=== PATIENT | female | born 1960 | race Caucasian/White ===

== ENCOUNTER → 2018-01-25 12:17 | Outpatient (CLI) | payer MEDICAID, SELFPAY ==
--- NOTE | 2018-01-25 12:31 | XR_ITS ---
XR chest 2V HISTORY: Lung mass, lung cancer ITS.REASON: HX OF LUNG CANCER ORDERING PHYSICIAN: Stefano Quinones MD PATIENT AGE: 57 years COMPARISON: 09/19/2017 FINDINGS: Left perihilar and upper lobe mass is once again noted at 10 x 7 cm and appears slightly less bulky. There is however now consolidation in the left lower lobe laterally consistent with postobstructive pneumonia there is hyperinflation of the right lung with eventration of the hemidiaphragm. Normal heart size. No acute bony anomalies. IMPRESSION: Left perihilar and upper lobe mass once again noted is which may be slightly less bulky consistent with neoplasm. Peripheral consolidation in the left lower lobe laterally consistent with postobstructive pneumonia
[2018-01-25 12:37] LABS: Basophils % 0.5 % (0.1-2.0); Eosinophils # 0.1 K/mm3 (0.0-0.4); Eosinophils % 0.8 % (0.1-12.0); Hematocrit 42.5 % (37.0-47.0); Hemoglobin 14.1 g/dL (12.2-16.2); Lymphocytes # 1.2 K/mm3 (0.7-4.5); Lymphocytes % 17.3 K/mm3 (10-50); Mean Corpuscular HGB Conc 33.1 g/dL (31.8-35.4); Mean Corpuscular Hemoglobin 32.5 pg (27.0-31.2); Mean Corpuscular Volume 98.3 fl (81-99); Mean Platelet Volume 7.1 fl (7.4-10.4); Monocytes # 0.4 K/mm3 (0.1-1.0); Monocytes % 4.9 % (1.7-9.3); Neutrophils # 5.5 K/mm3 (1.8-7.8); Neutrophils % 76.4 % (37.0-80.0); Platelet Count 330 K/mm3 (142-424); Red Blood Count 4.33 M/mm3 (4.20-5.40); Red Cell Distribution Width 14.1 % (11.5-17.5); White Blood Count 7.2 K/mm3 (4.8-10.8)
[2018-01-25 17:01] LABS: Alanine Aminotransferase 84 U/L (12-78); Albumin Level 4.1 gm/dL (3.4-5.0); Albumin/Globulin Ratio 1.1 (1.1-1.8); Alkaline Phosphatase 262 U/L (46-116); Anion Gap 15.3 mEq/L (5-15); Aspartate Amino Transferase 182 U/L (15-37); Blood Urea Nitrogen 2 mg/dL (7-18); Calcium 9.4 mg/dL (8.5-10.1); Carbon Dioxide 30 mmol/L (21.0-32.0); Chloride 95 mmol/L (98-107); Creatinine,Serum 0.51 mg/dL (0.55-1.02); Estimated Glomerular Filt Rate 125 ml/min (>60); GFR (African American) 151 ML/MIN (>60); Globulin 3.6 gm/dl (1.3-3.2); Glucose 106 mg/dL (74-106); Potassium 4.3 mmoL/L (3.5-5.1); Sodium 136 mmol/L (136-145); Total Protein,Serum 7.7 gm/dL (6.4-8.2)
== END ==
PROVIDERS: PCP Internal Medicine Adolescent Medicine; Visit Provider Internal Medicine Adolescent Medicine
DX: C34.90 Malignant neoplasm of unspecified part of unspecified bronchus or lung (principal)
CPT/HCPCS: 36415; 71046; 80053; 85025

== ENCOUNTER → 2018-04-12 13:45 | Outpatient (CLI) | payer MEDICAID, SELFPAY ==
--- NOTE | 2018-04-12 13:52 | XR_ITS ---
XR chest 2V HISTORY: ITS.REASON: COUGH ORDERING PHYSICIAN: Marcela Patterson PATIENT AGE: 58 years COMPARISON: 01/25/2018: FINDINGS: Soft tissue mass once again noted in the left lower lobe measuring 10 x 5.3 x 7 cm and is overall not significant changed from 01/25/2018. Increased density once again noted in the peripheral aspect of the left lower lobe anterior to the mass and may be due to loculated effusion or post obstructive pneumonitis. Left upper lobe and right lung are clear. IMPRESSION: Overall no change in the left lower lobe mass with postobstructive pneumonia or loculated effusion
== END ==
PROVIDERS: PCP Nurse Practitioner Family; Visit Provider Nurse Practitioner Family
DX: R05 Cough (principal)
CPT/HCPCS: 71046

== ENCOUNTER → 2018-04-15 10:44 | Outpatient (POV) | payer MEDICAID, SELFPAY ==
[2018-04-15 10:59] VITALS: BP 121/71; PULSE 120; RESP 21; TEMP 36.8; O2SAT 94; BMI 14.3
--- NOTE | 2018-04-15 11:09 | PC.NURSE ---
patient alert, oriented at assessment. patient states was sent by medical staff for pain management for chronic bilateral leg pain that she has after chemo treatments.
--- NOTE | 2018-04-15 11:58 | HMH.PMCON ---
Assessment and Plan (1) Cancer associated pain Current visit: Yes Status: Chronic Category: Medical Code(s): G89.3 - Neoplasm related pain (acute) (chronic) (2) Back pain Current visit: Yes Status: Chronic Category: Medical Code(s): M54.9 - Dorsalgia, unspecified - Assessment and plan all Dx Assessment and Plan for all problems:: We will continue her on her oxycodone 5 twice daily. Patient is not do this at this time. LAURA reviewed and appropriate. I spoke with Dr. Nino and he is in agreement with this. Patient and I did discuss potentially a intrathecal pain pump if her pain symptoms get worse. This note was dictated using voice recognition software and may contain errors or omissions HPI - Data of Consult Consult date: 04/15/18 Requesting Physician: Aliya Sharma APRN Primary Care Provider: Marcela Patterson APRN - Consult Narrative Reason for consult: Cancer pain History of present illness: Ms. Willson is a 58 year old female who presents consultation in regards to her pain secondary to lung cancer. Patient was diagnosed with lung cancer in 2017 and pursued chemo treatment however she had side effects of the chemo treatment including terrible back and leg pain. Patient is being prescribed oxycodone 5 mg by her primary care physician. She states that she only takes 1 or 2 a week. Patient rates her pain today a 4 out of 10. CC: Aliya Sharma APRN [facility] History I have reviewed the patient's past medical history: Yes Medical History: Reports:: Cancer Denies:: Home Oxygen Other Medical History: Reports: Anemia Other Surgeries: Yes: , Tubal Ligation - *Social History Smoking Status: Current every day smoker Tobacco Type: cigarettes Alcohol Intake: current Alcohol Intake Frequency:: 3 or more drinks per day Occupational Status: disabled - Psychiatric History Expresses thoughts of harming self/others: None Suicide Plan Description: No Plan *Family Hx:: Heart Attack Review of Systems - Review of Systems ROS General: no recent weight change, no fever, no sleep disturbances Respiratory: no cough, no shortness of air, no recurring pulmonary infections Cardiovascular/Peripheral Vascular: No chest pain, No palpitations, no edema, no shortness of breath. Gastrointestinal: no incontinence, normal bowel movements reported Genitourinary: no incontinence Musculoskeletal: Back pain, chest wall pain, leg pain Psychiatric: normal mood/ affect Neurological: [denies weakness in extremities], [denies balance issues] Meds Allergies Allergy/AdvReac Type Severity Reaction Status Date / Time No Known Allergies Allergy Verified 09/19/17 09:28 Objective Vital signs: Temp Pulse Resp BP Pulse Ox 98.2 F 120 H 21 121/71 94 L 04/15/18 10:59 04/15/18 10:59 04/15/18 10:59 04/15/18 10:59 04/15/18 10:59 Narrative: Physical Exam General: Alert and oriented x3, no acute distress, pleasant and cooperative, [on room air] Lungs: Resps E/U, Symmetrical chest expansion, Eyes: PERRL Musculoskeletal: Flexion and extension of lumbar spine somewhat guarded secondary to pain, deep tendon reflexes normal, strength in upper and lower extremities [5/5], antalgic gait noted Neurological: speech clear, rolling machine operator equal, no gross sensory deficits Opioid Risk Tool - Opioid Risk Tool-Female Family hx alcohol abuse: Y Family hx illegal drugs: N Family hx rx drug abuse: N Personal hx alcohol abuse: Y Personal hx illegal drugs: N Personal hx rx drug abuse: N Age: 45+ Hx of sexual abuse: N Mental health issues-ADD,OCD,Bipolar, etc: N Hx of depression: N Female Risk Score: 2
== END ==
PROVIDERS: PCP Nurse Practitioner Family; Visit Provider Clinical Nurse Specialist Family Health
DX: G89.3 Neoplasm related pain (acute) (chronic) (principal); C34.90 Malignant neoplasm of unspecified part of unspecified bronchus or lung; M54.9 Dorsalgia, unspecified
CPT/HCPCS: 99202

== ENCOUNTER → 2018-06-03 13:57 | Outpatient (POV) | payer MEDICAID, SELFPAY ==
[2018-06-03 14:39] VITALS: BP 113/87; PULSE 127; RESP 18; O2SAT 99; BMI 13.6
--- NOTE | 2018-06-03 14:50 | P.CONS_ITS ---
[facility] Pain Management SOAP Note Subjective:: Patient is a very pleasant 58-year-old female who presents today for follow-up. Patient witnessed with lung cancer in 2017 and pursued commitment however she had side effects of the chemo including terrible back and leg pain. She then was prescribed oxycodone 5 mg twice daily from her primary care physician she states she only takes 1 or 2 of them a week. Rates her pain today a 2 out of 10. Patient is doing well. ROS General: no recent weight change, no fever, no sleep disturbances Respiratory: no cough, no shortness of air, no recurring pulmonary infections Cardiovascular/Peripheral Vascular: No chest pain, No palpitations, no edema, no shortness of breath. Gastrointestinal: no incontinence, normal bowel movements reported Genitourinary: no incontinence Musculoskeletal: Back pain, leg, chest wall pain Psychiatric: normal mood/ affect, Neurological: [denies weakness in extremities], [denies balance issues] Objective:: Physical Exam General: Alert and oriented x3, no acute distress, pleasant and cooperative, [on room air] Lungs: Resps E/U, Symmetrical chest expansion, Eyes: PERRL Musculoskeletal: Flexion and extension of lumbar spine somewhat guarded secondary to pain, deep tendon reflexes normal, strength in upper and lower extremities [5/5], [abnormal gait noted] Neurological: speech clear, bark tanner equal, no gross sensory deficits Assessment:: Cancer associated pain, back pain Plan:: We will give the patient for oxycodone 5 mg 1 twice daily as needed. We will follow-up with her in 3 months and reassess her symptoms at that time. She is been instructed to call the office if she has any issues prior to her next appointment. Dr. Nino has reviewed this note and agrees with this plan of care. This note was dictated using voice recognition software and may contain errors or omissions
[2018-06-03 16:30] LABS: Amphetamine/Metha Screen,Urine Negative ng/mL (<1000); Barbiturates Screen,Urine Negative ng/mL (<200); Benzodiazepines Screen,Urine Negative ng/mL (<200); Cannabinoid Screen,Urine Negative ng/mL (<50); Cocaine Screen,Urine Negative ng/mL (<300); Methadone Screen,Urine Negative ng/mL (<300); Opiate Screen,Urine Negative ng/mL (<300); Phencyclidine Screen,Urine Negative ng/mL (<25)
[2018-06-08 11:57] LABS: Opiates Negative (Cutoff=100)
== END ==
PROVIDERS: PCP Nurse Practitioner Family; Visit Provider Clinical Nurse Specialist Family Health
DX: G89.3 Neoplasm related pain (acute) (chronic) (principal); M54.9 Dorsalgia, unspecified
CPT/HCPCS: 80305; 80361; 80365; 99213; G0480

== ENCOUNTER → 2018-06-13 12:30 | Outpatient (CLI) | payer MEDICAID, SELFPAY ==
--- NOTE | 2018-06-13 12:50 | CT_ITS ---
CT chest w con HISTORY: History of lung cancer, pneumonia, chest mass ITS.REASON: BENIGN NEOPLASM OF CONNECTIVE AND OTHER SOFT TISSUE OF THORA ORDERING PHYSICIAN: Marcela Patterson PATIENT AGE: 58 years COMPARISON: 09/19/2017 TECHNIQUE: Axial images obtained following the administration of 75 mL of Isovue 370 . Sagittal, and coronal reformatted images are also generated and reviewed. All CT scans at the facility use one or more dose reduction, viz: automated exposure control, ma/kV adjustment per patient size (including targeted exams where dose is matched to indication, i.e. head), or iterative reconstruction technique. FINDINGS: There is a large soft tissue mass in the superior segment of the left lower lobe with associated lung consolidation surrounding and peripheral to the mass. The lesion measures 9 cm transverse, 6 cm cephalad to caudad, 7 cm AP consistent with lung cancer. There is postobstructive pneumonitis in the left lower lobe. There are peripheral satellite nodules in the left lower lobe as well. Scattered nodular opacities are present in the left upper lobe, right upper lobe, and right lower lobe. There are severe centrilobular emphysematous changes. There is opacification in the right upper lobe with a tree-in-bud pattern consistent with pneumonia. There is some No effusions are evident. The large peripheral nodule is 1.9 cm within the right upper lobe inferiorly with some mild postobstructive pneumonitis peripheral to this nodule. Other smaller nodules are present in both lungs as described above. No mediastinal or hilar adenopathy. Normal heart size. Upper abdominal images show diffuse fatty liver infiltration. No bony destructive process demonstrated. IMPRESSION: 1. Left lower lobe mass as described above consistent with lung cancer with postobstructive pneumonitis. There are satellite nodules in the left lower lobe and peripheral nodules in both left and right lung consistent with metastatic disease. 2. Right upper lobe pneumonia 3. Centrilobular emphysema
[2018-06-13 13:03] LABS: Anion Gap 10.7 mEq/L (5-15); Blood Urea Nitrogen 2 mg/dL (7-18); Calcium 9.1 mg/dL (8.5-10.1); Carbon Dioxide 32 mmol/L (21.0-32.0); Chloride 93 mmol/L (98-107); Estimated Glomerular Filt Rate 128 ml/min (>60); GFR (African American) 154 ML/MIN (>60); Glucose 115 mg/dL (74-106); Potassium 3.7 mmoL/L (3.5-5.1); Sodium 132 mmol/L (136-145)
== END ==
PROVIDERS: Visit Provider Nurse Practitioner Family
DX: D21.3 Benign neoplasm of connective and other soft tissue of thorax (principal)
CPT/HCPCS: 36415; 71260; 80048

== ENCOUNTER → 2018-09-02 11:12 | Outpatient (POV) | payer MEDICAID, SELFPAY ==
[2018-09-02 11:23] VITALS: BP 105/66; PULSE 114; RESP 18; O2SAT 98; BMI 18.3
--- NOTE | 2018-09-02 11:31 | P.CONS_ITS ---
[facility] Pain Management SOAP Note Subjective:: Patient is a pleasant 58-year-old white female who presents today for follow-up. Patient is currently battling lung cancer. Patient has not been continuing any kind of chemotherapy. Patient's been on oxycodone 5 mg twice daily for pain. She only takes 1 or 2 of them a week. She rates her pain today a 2 out of 10. Patient is overall doing well. Fabian reviewed and appropriate. ROS General: no recent weight change, no fever, no sleep disturbances Respiratory: no cough, no shortness of air, no recurring pulmonary infections Cardiovascular/Peripheral Vascular: No chest pain, No palpitations, no edema, no shortness of breath. Gastrointestinal: no incontinence, normal bowel movements reported Genitourinary: no incontinence Musculoskeletal: Back pain, leg pain, chest wall pain Psychiatric: normal mood/ affect Neurological: [denies weakness in extremities], [denies balance issues] Objective:: Physical Exam General: Alert and oriented x3, no acute distress, pleasant and cooperative, [on room air] Lungs: Resps E/U, Symmetrical chest expansion, Eyes: PERRL Musculoskeletal: Flexion and extension of lumbar spine somewhat guarded secondary to pain, deep tendon reflexes normal, strength in upper and lower extremities [5/5], antalgic gait noted Neurological: speech clear, transport nurse equal, no gross sensory deficits Assessment:: Cancer associated pain, back pain Plan:: We will give the patient oxycodone 5 mg 1 p.o. twice daily as needed we will follow-up with her in 3 months reassess her symptoms at that time she is been instructed to call the office if she has any issues prior to her next appointment. Dr. Nino has reviewed this note and agrees with this plan of care. This note was dictated using voice recognition software and may contain errors or omissions
== END ==
PROVIDERS: PCP Nurse Practitioner Family; Visit Provider Clinical Nurse Specialist Family Health
DX: G89.3 Neoplasm related pain (acute) (chronic) (principal); M54.5 Low back pain
CPT/HCPCS: 99212

== ENCOUNTER 2018-11-26 05:12 | Inpatient (IN) ==
[2018-11-26 05:35] LABS: ABG Base Excess 3.3 mmol/L (-2.4-2.3); ABG HCO3 26.8 mmhg (22.0-26.0); ABG Oxygen Saturation 88 % (90-100); ABG PH 7.48 mmol/L (7.35-7.45); ABG PO2 53.2 mmhg (80-100); ABG TCO2 27.9 mmhg (23-27)
[2018-11-26 05:37] LABS: Oxygen ROOM AIR %
[2018-11-26 05:58] LABS: Basophils # 0.1 K/mm3 (0-0.2); Basophils % 0.3 % (0.1-2.0); Eosinophils # 0.1 K/mm3 (0.0-0.4); Eosinophils % 0.3 % (0.1-12.0); Hemoglobin 12.6 g/dL (12.2-16.2); Lymphocytes # 2.6 K/mm3 (0.7-4.5); Lymphocytes % 7.1 % (10-50); Mean Corpuscular HGB Conc 30.8 g/dL (31.8-35.4); Mean Corpuscular Volume 93.3 fl (81-99); Mean Platelet Volume 6.9 fl (7.4-10.4); Monocytes # 1.4 K/mm3 (0.1-1.0); Monocytes % 3.7 % (1.7-9.3); Neutrophils # 32.8 K/mm3 (1.8-7.8); Neutrophils % 88.6 % (37.0-80.0); Platelet Count 887 K/mm3 (142-424); Red Cell Distribution Width 15.5 % (11.5-17.5)
[2018-11-26 06:21] LABS: Albumin Level 2.2 gm/dL (3.4-5.0); Albumin/Globulin Ratio 0.4 (1.1-1.8); Anion Gap 14.3 mEq/L (5-15); Bilirubin,Total 0.7 mg/dL (0.2-1.0); Globulin 5.7 gm/dl (1.3-3.2); Total Protein,Serum 7.9 gm/dL (6.4-8.2)
[2018-11-26 06:38] LABS: Lymphocytes % 8 % (10-50); Monocytes % 5 % (2-9); Neutrophils % 87 % (42-76); Total Cells Counted 100
--- NOTE | 2018-11-26 06:43 | Emergency Department Note ---
ED Disposition Clinical Impression: NSTEMI (non-ST elevated myocardial infarction), Low body mass index (BMI), Tobacco use Community acquired pneumonia Qualifiers: Laterality: right Lung location: unspecified part of lung Qualified Code(s): J1 8.9 - Pneumonia, unspecified organism Sepsis Qualifiers: Sepsis type: sepsis due to unspecified organism Qualified Code(s): A41.9 - Sepsis, unspecified organism Lung cancer Qualifiers: Laterality: right Lung location: unspecified part of lung Qualified Code(s): C34.91 - Malignant neoplasm of unspecified part of right bronchus or lung Disposition: Admitted As Inpatient Condition on Discharge: Critical Referrals: Marcela Patterson APRN [Primary Care Provider] - - Critical Care Critical Care Time: No Attestation: On 11/26/18, the high probability of a clinically significant, sudden or life threatening deterioration of the following system(s) required my full and direct attention, intervention and personal management. The time I documented below is in addition to time spent performing reported procedures but includes the following listed in this critical care notation. Medical Decision Making - Medical Records Medical records reviewed: Yes: I reviewed the patient's medical records. - Fabian Inquiry Pt receiving controlled substance: No Vital Signs: 11/26/18 05:23 11/26/18 05:51 11/26/18 06:46 Temperature 97.9 F 99.4 F Temperature Source Oral Oral Pulse Rate 140 H Pulse Rate [Right Radial] 150 H Respiratory Rate 27 H Blood Pressure [Right Arm] 108/82 L 118/70 Blood Pressure Mean [Right Arm] 90 86 02 Sat by Pulse Oximetry 85 L Oxygen Delivery Method Oxygen Flow Rate (LPM) 11/26/18 06:47 Temperature Temperature Source Pulse Rate Pulse Rate [Right Radial] 152 H Respiratory Rate 26 H Blood Pressure [Right Arm] Blood Pressure Mean [Right Arm] 02 Sat by Pulse Oximetry 91 L Oxygen Delivery Method Nasal Cannula Oxygen Flow Rate (LPM) 2 - Lab Data Lab results reviewed: Yes: I reviewed the patient's lab results. Lab Results 11/26/18 05:30: O2 % Room air, ABG pH 7.48 H, ABG pCO2 37.0, ABG pO2 53.2 L, ABG HCO3 26.8 H, ABG Total CO2 27.9 H, ABG O2 Saturation 88 L, ABG Base Excess 3.3 H 11/26/18 05:40: WBC 37.0 H*, RBC 4.40, Hgb 12.6, Hct 41.0, MCV 93.3, MCH 28.7, MCHC 30.8 L, RDW 15.5, Plt Count 887 H, MPV 6.9 L, Neut % (Auto) 88.6 H, Lymph % (Auto) 7.1 L, [place] % (Auto) 3.7, Eos % (Auto) 0.3, Baso % (Auto) 0.3, Neut # (Auto) 32.8 H, Lymph # (Auto) 2.6, [place] # (Auto) 1.4 H, Eos # (Auto) 0.1, Baso # (Auto) 0.1, Total Counted 100, Neutrophils % (Manual) 87 H, Lymphocytes % (Manual) 8 L, Monocytes % (Manual) 5, Platelet Estimate Marked increase, RBC Morphology Normal 11/26/18 05:40: Sodium 133 L, Potassium 3.3 L, Chloride 93 L, Carbon Dioxide 29, Anion Gap 14.3, BUN 6 L, Creatinine 0.54 L, Estimated Creat Clear 58, Estimated GFR 117, Est GFR ( Amer) 141, Glucose 121 H, Calcium 9.0, Total Bilirubin 0.7, AST 51 H, ALT 29, Alkaline Phosphatase 316 H, Troponin I 1.86 H, Total Protein 7.9, Albumin 2.2 L, Globulin 5.7 H, Albumin/Globulin Ratio 0.4 L 11/26/18 05:40: Lactate 2.3 H Result diagrams: 11/26/18 05:40 11/26/18 05:40 Orders (Tests/Meds): ED MEDICATIONS Generic Name Dose Route Start Last Admin Trade Name Lopezq PRN Reason Stop Dose Admin Sodium Chloride 1,000 mls @ 999 mls/hr 11/26/18 06:00 11/26/18 05:52 Sod Chlor 0.9% 1000ml Bag IV 11/26/18 07:00 999 mls/hr .Q1H1M MARTIN Administration Ceftriaxone Sodium 1 gm/ 50 mls @ 100 mls/hr 11/26/18 07:00 Sodium Chloride IV 12/10/18 06:59 Q24H MARTIN Protocol Sodium Chloride 3 ml 11/26/18 05:38 Sodium Chloride 3% 15ml Neb IH 12/26/18 05:37 ONCE PRN INDUCE SPUTUM COLLECTION Discontinued Medications Generic Name Dose Route Start Last Admin Trade Name Victor M PRN Reason Stop Dose Admin Acetaminophen 650 mg 11/26/18 05:51 11/26/18 05:52 Acetaminophen 325mg Tab PO 11/26/18 05:52 650 mg ONCE ONE Administration Levalbuterol HCl 0.63 mg 11/26/18 05:37 11/26/18 05:48 Xopenex 0.63mg/3ml [facility] 11/26/18 05:38 0.63 mg ONCE ONE Administration Methylprednisolone Sodium Succinate 125 mg 11/26/18 05:36 11/26/18 05:51 Solu-Medrol 125mg/2ml Vial IV 11/26/18 05:37 125 mg ONCE ONE Administration ORDERS Category Date Time Status XR chest portable Stat Exams 11/26/18 05:35 Taken Blood Culture Stat Micro 11/26/18 05:38 Received Sputum Culture & Gram Stain Stat Micro 11/26/18 05:40 Received - Radiology Data #1 Image(s): Chest Image Reviewed: Yes I reviewed the patient's radiology image Preliminary Findings: Abnormal (extensive rt sided changes ) - ECG Data Tracing #1 Arrhythmias present: sinus tach Ischemic changes: other (changes lat leads ) ECG compared to prior tracings: this ECG reveals significant changes Tracing #2 Arrhythmias present: sinus tach Ischemic changes: other (lat changes somewhat better ) ECG compared to prior tracings: this ECG reveals significant changes - Physician Consults Physician Consulted: doc Reason -: Admission Additional Consult: rell Reason -: Pt condition Resp/SOB HPI - General Chief Complaint: Shortness of Breath/Dyspnea Stated Complaint: SOB Time Seen by Provider: 11/26/18 05:50 Mode of Arrival: Wheelchair Source of Information: Patient Limitations: No Limitations Description of Symptoms (Recalled from ER Triage Doc. by RN): pt c/o shortness of breath. pt hx of stage 4 lung ca and copd. - History of Present Illness pt with prod cough and inc sob with hx of lung cancer - no chest pain - no hx of heart disease - MD Complaint: shortness of breath, cough Onset (ago): hour(s) Severity: moderate Known history of: COPD Associated symptoms: sputum production Treatment prior to arrival: none - Related Data Home oxygen amount: 2 liters Home Medications Medication Instructions Recorded Confirmed Albuterol Sulfate [Albuterol HFA 1 - 2 puffs IH NEEDED PRN 11/26/18 11/26/18 Inhaler] predniSONE [Prednisone 5mg 5 mg PO DIRECTED 11/26/18 11/26/18 Tab] Allergies Allergy/AdvReac Type Severity Reaction Status Date / Time No Known Allergies Allergy Verified 09/19/17 09:28 [facility] History - Hepatitis A Screen Drug use history?: No High risk sexual behaviors?: No History of sexually transmitted infection?: No Currently employed?: No Childcare worker?: No Do you have indoor plumbing?: No Do you have electricity?: Yes Attestation statement:: This patient has been screened for Hepatitis A risk factors. I have reviewed the patient's past medical history: Yes ( ) Medical History: Reports:: Cancer (JONAH 4 LUNG) Denies:: Diabetes Mellitus Type 1, Diabetes Mellitus Type 2, Home Oxygen Other Medical History: Reports: Anemia Other Surgeries: Yes: , Tubal Ligation - Social History Smoking Status: Current every day smoker Tobacco Type: cigarettes # Packs/Day (cigarettes): 1 Alcohol Intake: never Alcohol Intake Frequency:: 3 or more drinks per day Occupational Status: disabled Family Hx:: Heart Attack ROS Obtained: Yes All systems reviewed & no additional complaints - Constitutional Constitutional: Reports as per HPI, Denies fever(s), Reports weakness - Eyes Eyes: Denies change in vision - ENT Ears, Nose, Mouth, and Throat: Denies sore throat - Cardiovascular Cardiovascular: Denies chest pain, Reports dyspnea - Respiratory Respiratory: Yes as per HPI, Yes cough, No coughing up blood, Yes pain with cough - Gastrointestinal Gastrointestingal: Denies: abdominal pain - Genitourinary Female Genitourinary: Denies hematuria - Musculoskeletal Musculoskeletal: Denies joint pain, Denies joint swelling - Integumentary/Breasts Skin/Breast: Denies rash - Neurologic Neurologic: Denies seizure-like activity Physical Exam - General General appearance: anxious, cachectic - Head Head exam: normocephalic - Eye Eye exam: Present: PERRL, EOMI. Absent: scleral icterus - ENT ENT exam: Present: mucous membranes dry - Neck Neck exam: Present: trachea midline - Respiratory Respiratory exam: Present: accessory muscle use, other (dec bs bilat ). Absent: respiratory distress - Cardiovascular Cardiovascular exam: Present: tachycardia, systolic murmur, +S3 - Abdominal Exam Abdominal exam: Present: soft - Extremities Exam Extremities exam: Absent: calf tenderness - Neurological Exam Neurological exam: Present: alert, CN II-XII intact - Psychiatric Psychiatric exam: Present: anxious - Skin Skin exam: Absent: rash
[2018-11-26 06:45] LABS: RBC Morphology Normal
[2018-11-26 07:13] LABS: Appearance,Urine CLEAR (Clear); Bilirubin,Urine Negative (Negative); Blood, Urine Negative (Negative); Color,Urine YELLOW (Yellow); Glucose,Urine (UA) Negative (Negative); Ketones,Urine Negative (Negative); Leukocyte Esterase,Urine Negative (Negative); PH,Urine 6.5 (5.0-8.5); Protein,Urine Negative (Negative); Urobilinogen,Urine 0.2 EU/dl (0.2)
[2018-11-26 07:14] LABS: Microscopic, Urine URINE MICROSCOPIC (MICROSCOPIC)
[2018-11-26 07:30] LABS: Bacteria,Urine Trace /lpf; RBC,Urine Occasional #/hpf (0-3)
--- NOTE | 2018-11-26 07:38 | Pharmacy Consult Notes ---
[facility] VTE Monitoring - Patient Demographics Admission date: 11/26/18 Report Date: 11/26/18 Time: 07:38 Allergies/Adverse Reactions: Patient Allergies No Known Allergies Allergy (Verified 09/19/17 09:28) Height: 1.65 m Weight: 31.751 kg Patient Problems: Current Active Problems (Updated 11/26/18 @ 06:59 by [place] Rodney MD) Lung cancer (Acute) Community acquired pneumonia (Acute) Sepsis (Acute) NSTEMI (non-ST elevated myocardial infarction) (Acute) Low body mass index (BMI) (Acute) Tobacco use (Acute) - VTE Risk Labs: VTE Related Lab Results Hgb 12.6 g/dL (12.2-16.2) 11/26/18 05:40 Hct 41.0 % (37.0-47.0) 11/26/18 05:40 Plt Count 887 K/mm3 (142-424) H 11/26/18 05:40 BUN 6 mg/dL (7-18) L 11/26/18 05:40 Creatinine 0.54 mg/dL (0.55-1.02) L 11/26/18 05:40 Estimated Creat Clear 58 mL/min (50-200) 11/26/18 05:40 - Prophylaxis VTE Prophylaxis Ordered?: Yes Types of VTE Prophylaxis: TEDS Knee High Location of Applied Device: Bilateral Lower Extremeties - VTE Diagnosis Confirmed Treatment or plan recommended: Continue Current Treatment
--- NOTE | 2018-11-26 09:03 | History & Physical Report ---
*Admission Date: 11/26/18 <Rosalie Ellis 11/26/18 09:17> *Chief complaint: Shortness of breath <Rosalie Ellis 11/26/18 09:17> *History of present illness: Ms. Willson is a 58-year-old patient of Marcela Patterson APRN who presented to the [facility] emergency room with shortness of breath. She states she awakened around 3 AM this morning and was unable to breathe. This progressively worsened. She denies having chest pain at this time. She was staying with her son last night and did not bring her oxygen or her neb machine. With evaluation in the emergency room patient was found to have an elevated white blood cell count of 37,000, elevated troponin, elevated lactic acid, EKG changes, PO2 in the 50s and chest x-ray which revealed possible pneumonia. She was thus admitted for further evaluation and treatment with cardiology consult. She did receive a liter of IV fluids in the emergency room as well as a Xopenex neb treatment and steroids At the time of this exam patient states she is somewhat better. She continues to deny chest pain. Patient has a history of lung cancer and stopped treatments about a year ago. She states the treatments were killing her. She has been unable to walk and uses a wheelchair for ambulation. <RhondaRosalie 11/26/18 09:24> [facility] History Medical History: Reports:: Cancer (JONAH 4 LUNG), Chronic Obstructive Pulmonary Disease (COPD), Home Oxygen, Lung Disease Denies:: Atherosclerotic Heart Disease, Coronary Artery Disease, Diabetes Mellitus Type 1, Diabetes Mellitus Type 2, Gastroesophageal Reflux Disease(GERD), Myocardial Infarction, Palpitations <Rosalie Ellis 11/26/18 09:17> *Have you ever received a pneumonia vaccine?: No <Rosalie Ellis 11/26/18 09:17> *Have you received a flu vaccine this season?: No <Rosalie Ellis 11/26/18 09:17> Other Medical History: Reports: Anemia, Chemotherapy (She stopped treatment about a year ago). Denies: Hypothyroidism <Rosalie Ellis 11/26/18 09:17> Other Surgeries: Yes: , Tubal Ligation <Rosalie Ellis 11/26/18 09:17> Amputation: No <Rosalie Ellis 11/26/18 09:17> Fractures: No <Rosalie Ellis 11/26/18 09:17> - *Social History Educational Level: Attended High School <Rosalie Ellis 11/26/18 09:17> Smoking Status: Current every day smoker <Rosalie Ellis 11/26/18 09:17> Tobacco Type: cigarettes <Rosalie Ellis 11/26/18 09:17> # Packs/Day (cigarettes): 1 <Rosalie Ellis 11/26/18 09:17> Alcohol Intake: current <Rosalie Ellis 11/26/18 09:17> Alcohol Intake Frequency:: 3 or more drinks per day <Rosalie Ellis 11/26/18 09:17> *Occupational Status:: disabled <Rosalie Ellis 11/26/18 09:17> Housing: house <Rosalie Ellis 11/26/18 09:17> *Travel in the last 8 weeks: None <Rosalie Ellis 11/26/18 09:17> - Psychiatric History Expresses thoughts of harming self/others: None <Rosalie Ellis 11/26/18 09:17> Suicide Plan Description: No Plan <Rosalie Ellis 11/26/18 09:17> Family Hx:: Heart Attack <Rosalie Ellis 11/26/18 09:17> Review of Systems - Constitutional Reports chills, Reports weakness, Denies headache(s) <Rosalie Ellis 11/26/18 09:17> - ENT Reports post nasal drip, Reports dizziness, Denies ear pain, Denies headache(s), Denies nasal discharge, Denies sore throat <Rosalie Ellis 11/26/18 09:17> - *Cardiovascular Reports shortness of breath, Reports leg swelling, Denies chest pain, Denies irregular heart rhythm <RhondaRosalie 11/26/18 09:17> - *Respiratory Reports change in phlegm color, Reports cough, Reports shortness of breath, Reports coughing up blood <Rosalie Ellis 11/26/18 09:17> - *Gastrointestinal Reports change in bowel habits (Constipation with pain medicines), Reports constipation, Denies abdominal pain, Denies vomiting blood, Denies nausea, Denies vomiting <Rosalie Ellis Dorina 11/26/18 09:17> - *Genitourinary Denies difficulty urinating <Rosalie Ellis Dorina 11/26/18 09:17> - *Musculoskeletal Reports abnormal walking, Reports decreased muscle mass <Rosalie Ellis Dorina 11/26/18 09:17> - *Neurologic Reports weakness, Denies seizure-like activity <Rosalie Ellis Dorina 11/26/18 09:17> Comments: Ambulates in a wheelchair <Rosalie Ellis Dorina 11/26/18 09:17> Meds Home Medications Medication Instructions Recorded Confirmed Type Albuterol Sulfate [Albuterol HFA 1 - 2 puffs IH NEEDED PRN 11/26/18 11/26/18 History Inhaler] Diclofenac Sodium [Diclofenac 75mg 75 mg PO BID 11/26/18 11/26/18 History Tab] predniSONE [Prednisone 5mg 5 mg PO DIRECTED 11/26/18 11/26/18 History Tab] <Bonny Carty Dorina 11/26/18 11:12> Allergies Allergy/AdvReac Type Severity Reaction Status Date / Time No Known Allergies Allergy Verified 09/19/17 09:28 <Bonny Carty Dorina 11/26/18 11:12> Exam Vital signs and Labs for Last 24 Hours: Temp Pulse Resp BP Pulse Ox 97.7 F 129 H 24 135/89 2 L 11/26/18 08:27 11/26/18 10:00 11/26/18 08:27 11/26/18 08:27 11/26/18 10:00 Laboratory Results - last 24 hr 11/26/18 05:30: O2 % Room air, ABG pH 7.48 H, ABG pCO2 37.0, ABG pO2 53.2 L, ABG HCO3 26.8 H, ABG Total CO2 27.9 H, ABG O2 Saturation 88 L, ABG Base Excess 3.3 H 11/26/18 05:40: WBC 37.0 H*, RBC 4.40, Hgb 12.6, Hct 41.0, MCV 93.3, MCH 28.7, MCHC 30.8 L, RDW 15.5, Plt Count 887 H, MPV 6.9 L, Neut % (Auto) 88.6 H, Lymph % (Auto) 7.1 L, [place] % (Auto) 3.7, Eos % (Auto) 0.3, Baso % (Auto) 0.3, Neut # (Auto) 32.8 H, Lymph # (Auto) 2.6, [place] # (Auto) 1.4 H, Eos # (Auto) 0.1, Baso # (Auto) 0.1, Total Counted 100, Neutrophils % (Manual) 87 H, Lymphocytes % (Manual) 8 L, Monocytes % (Manual) 5, Platelet Estimate Marked increase, RBC Morphology Normal 11/26/18 05:40: Sodium 133 L, Potassium 3.3 L, Chloride 93 L, Carbon Dioxide 29, Anion Gap 14.3, BUN 6 L, Creatinine 0.54 L, Estimated Creat Clear 58, Estimated GFR 117, Est GFR ( Amer) 141, Glucose 121 H, Calcium 9.0, Total Bilirubin 0.7, AST 51 H, ALT 29, Alkaline Phosphatase 316 H, Troponin I 1.86 H, Total Protein 7.9, Albumin 2.2 L, Globulin 5.7 H, Albumin/Globulin Ratio 0.4 L 11/26/18 05:40: Lactate 2.3 H 11/26/18 07:05: Urine Color Yellow, Urine Appearance Clear, Urine pH 6.5, Ur Specific [place] 1.010, Urine Protein Negative, Urine Glucose (UA) Negative, Urine Ketones Negative, Urine Blood Negative, Urine Nitrate Negative, Urine Bilirubin Negative, Urine Urobilinogen 0.2, Ur Leukocyte Esterase Negative, Urine RBC Occasional, Urine WBC 3-5, Ur Squamous Epith Cells 5-10, Urine Bacteria Trace 11/26/18 10:30: Lactate 4.2 H <CarlozBonny - 11/26/18 11:12> Temp Pulse Resp BP Pulse Ox 97.7 F 120 H 24 135/89 93 L 11/26/18 08:27 11/26/18 08:27 11/26/18 08:27 11/26/18 08:27 11/26/18 07:28 Laboratory Results - last 24 hr 11/26/18 05:30: O2 % Room air, ABG pH 7.48 H, ABG pCO2 37.0, ABG pO2 53.2 L, ABG HCO3 26.8 H, ABG Total CO2 27.9 H, ABG O2 Saturation 88 L, ABG Base Excess 3.3 H 11/26/18 05:40: WBC 37.0 H*, RBC 4.40, Hgb 12.6, Hct 41.0, MCV 93.3, MCH 28.7, MCHC 30.8 L, RDW 15.5, Plt Count 887 H, MPV 6.9 L, Neut % (Auto) 88.6 H, Lymph % (Auto) 7.1 L, [place] % (Auto) 3.7, Eos % (Auto) 0.3, Baso % (Auto) 0.3, Neut # (Auto) 32.8 H, Lymph # (Auto) 2.6, [place] # (Auto) 1.4 H, Eos # (Auto) 0.1, Baso # (Auto) 0.1, Total Counted 100, Neutrophils % (Manual) 87 H, Lymphocytes % (Manual) 8 L, Monocytes % (Manual) 5, Platelet Estimate Marked increase, RBC Morphology Normal 11/26/18 05:40: Sodium 133 L, Potassium 3.3 L, Chloride 93 L, Carbon Dioxide 29, Anion Gap 14.3, BUN 6 L, Creatinine 0.54 L, Estimated Creat Clear 58, Estimated GFR 117, Est GFR ( Amer) 141, Glucose 121 H, Calcium 9.0, Total Bilirubin 0.7, AST 51 H, ALT 29, Alkaline Phosphatase 316 H, Troponin I 1.86 H, Total Protein 7.9, Albumin 2.2 L, Globulin 5.7 H, Albumin/Globulin Ratio 0.4 L 11/26/18 05:40: Lactate 2.3 H 11/26/18 07:05: Urine Color Yellow, Urine Appearance Clear, Urine pH 6.5, Ur Specific [place] 1.010, Urine Protein Negative, Urine Glucose (UA) Negative, Urine Ketones Negative, Urine Blood Negative, Urine Nitrate Negative, Urine Bilirubin Negative, Urine Urobilinogen 0.2, Ur Leukocyte Esterase Negative, Urine RBC Occasional, Urine WBC 3-5, Ur Squamous Epith Cells 5-10, Urine Bacteria Trace <Rosalie Ellis - 11/26/18 09:17> I & O for Last 24 hours: Intake & Output 11/23/18 11/24/18 11/25/1811/26/19 11:59 11:59 11:59 11:59 Weight 78 lb <Bonny Carty 11/26/18 11:12> Intake & Output 11/23/18 11/24/18 11/25/18 11/26/18 11:59 11:59 11:59 11:59 Weight 78 lb <Rosalie Ellis 11/26/18 09:17> Microbiology Reports for the Last 24 Hours: Microbiology 11/26/18 05:40 Sputum - Expectorated Sputum Gram Stain - Final <Bonny Carty - 11/26/18 11:12> Microbiology 11/26/18 05:40 Sputum - Expectorated Sputum Gram Stain - Final <Rosalie Ellis 11/26/18 09:17> - Constitutional moderate distress, thin, chronically ill appearing, cooperative <Rosalie Ellis 11/26/18 09:17> - *Routine HEENT Exam Head: Present: normocephalic, atraumatic <Rosalie Ellis 11/26/18 09:17> Eye: Present: PERRL. Absent: conjunctival icterus, scleral injection <Rosalie Ellis 11/26/18 09:17> ENT: Present: mucous membranes dry <Rosalie Ellis 11/26/18 09:17> - *Routine Neck Exam Absent: carotid bruit, lymphadenopathy, thyromegaly <Rosalie Ellis 11/26/18 09:17> - *Routine Respiratory Exam Present: diminished air movement (Bilaterally anteriorly and posteriorly) <Rosalie Ellis 11/26/18 09:17> Comments: More dyspneic with talking <Rosalie Ellis 11/26/18 09:17> - *Routine Cardiovascular Exam Present: RRR, tachycardia (Heart rate 129 on monitor) <Rosalie Ellis 11/26/18 09:17> - *Routine Abdominal Exam Present: soft, normoactive bowel sounds. Absent: tenderness, distended <Rosalie Ellis 11/26/18 09:17> - *Routine Extremities Exam Absent: edema, calf tenderness <Rosalie Ellis 11/26/18 09:17> - *Routine Skin Exam Present: dry, warm <Rosalie Ellis 11/26/18 09:17> - *Routine Neurological Exam Present: alert, oriented X3 <Rosalie Ellis - 11/26/18 09:17> Assessment and Plan (1) Community acquired pneumonia Current visit: Yes Status: Acute Qualifiers: Laterality: right Lung location: unspecified part of lung Qualified Code(s): J18.9 - Pneumonia, unspecified organism Category: Medical Code(s): J18.9 - Pneumonia, unspecified organism (2) Low body mass index (BMI) Current visit: Yes Status: Acute Category: Medical (3) Lung cancer Current visit: Yes Status: Acute Qualifiers: Laterality: right Lung location: unspecified part of lung Qualified Code(s): C34.91 - Malignant neoplasm of unspecified part of right bronchus or lung Category: Medical Code(s): C34.90 - Malignant neoplasm of unspecified part of unspecified bronchus or lung (4) NSTEMI (non-ST elevated myocardial infarction) Current visit: Yes Status: Acute Category: Medical Code(s): I21.4 - Non-ST elevation (NSTEMI) myocardial infarction (5) Sepsis Current visit: Yes Status: Acute Qualifiers: Sepsis type: sepsis due to unspecified organism Qualified Code(s): A41.9 - Sepsis, unspecified organism Category: Medical Code(s): A41.9 - Sepsis, unspecified organism (6) Tobacco use Current visit: Yes Status: Acute Category: Medical Code(s): Z72.0 - Tobacco use (7) Anemia Current visit: No Status: Acute Qualifiers: Anemia type: unspecified type Qualified Code(s): D64.9 - Anemia, unspecified Category: Medical Code(s): D64.9 - Anemia, unspecified (8) Hypokalemia Current visit: No Status: Acute Category: Medical Code(s): E87.6 - Hypokalemia <Rosalie Ellis - 11/26/18 09:18> (1) Sepsis Current visit: Yes Status: Acute Qualifiers: Sepsis type: sepsis due to unspecified organism Qualified Code(s): A41.9 - Sepsis, unspecified organism Category: Medical Code(s): A41.9 - Sepsis, unspecified organism (2) Cardiomyopathy Current visit: Yes Status: Acute Category: Medical Code(s): I42.9 - Cardiomyopathy, unspecified (3) Community acquired pneumonia Current visit: Yes Status: Acute Qualifiers: Laterality: right Lung location: unspecified part of lung Qualified Code(s): J18.9 - Pneumonia, unspecified organism Category: Medical Code(s): J18.9 - Pneumonia, unspecified organism (4) Low body mass index (BMI) Current visit: Yes Status: Acute Category: Medical (5) Lung cancer Current visit: Yes Status: Acute Qualifiers: Laterality: right Lung location: unspecified part of lung Qualified Code(s): C34.91 - Malignant neoplasm of unspecified part of right bronchus or lung Category: Medical Code(s): C34.90 - Malignant neoplasm of unspecified part of unspecified bronchus or lung (6) NSTEMI (non-ST elevated myocardial infarction) Current visit: Yes Status: Acute Category: Medical Code(s): I21.4 - Non-ST elevation (NSTEMI) myocardial infarction (7) Tobacco use Current visit: Yes Status: Acute Category: Medical Code(s): Z72.0 - Tobacco use (8) Anemia Current visit: No Status: Acute Qualifiers: Anemia type: unspecified type Qualified Code(s): D64.9 - Anemia, unspecified Category: Medical Code(s): D64.9 - Anemia, unspecified (9) Hypokalemia Current visit: No Status: Acute Category: Medical Code(s): E87.6 - Hypokalemia <Bonny Carty - 11/26/18 11:12> - Assessment and plan all Dx Assessment and Plan for all problems:: I explained extensively to patient, son and [id number] at bedside her prognosis for sepsis. I had also explained what the continuous loft operator has recommended regarding her catheterization. However patient does not want to go to and does not want to pursue cardiac cath and/or her lung cancer at this time. She does want her sepsis to be treated at this time at [facility]. I told her she will get IV antibiotics and judicious IV fluids with IV Lasix as needed to prevent cardiac overload. I also let the family and p atient know that she is having a heart failure with ejection fraction of 20%. After explaining the details of the resuscitation process, patient changed her mind to DNR/DNI at this time. If patient was to code, she will be kept comfortable with IV morphine and IV Ativan as needed. This was voiced with the patient and the family and they all agree to this at this time. Had also talked her about hospice, patient is not ready for that yet. I let her know this is an option for her and she can always revisit about going to hospice. <Bonny Carty - 11/26/18 11:12> Patient has been admitted to acute care treatment. Cardiology is currently seeing the patient. We will continue with IV fluids, steroids, nebs and antibiotics for now. <Rosalie Ellis - 11/26/18 09:24>
--- NOTE | 2018-11-26 09:52 | Consult Report ---
History of Present Illness Consult date: 11/26/18 Requesting physician: Bonny Carty Consult reason: shortness of breath Chief complaint: SOB Additional Medical History:: 1. lung cancer 2. COPD 3. Lung disease History of present illness: This is a 58-year-old white female who was admitted to the hospital with shortness of breath. She is a regular patient of Marcela Patterson APRN. The patient woke up around 3 AM this morning unable to breathe. She states that her shortness of breath has been progressively worsening over the last several weeks. She states that she was so short of breath that she was gasping for air. She stated her son's house last night and did not bring her oxygen or nebulizers machine with her, so she decided to come to the emergency department for treatment. She states that she does have an associated cough with her shortness of breath. She reports that she does have excessive phlegm production as well. She has noted wheezing as well. She denied any chest pain or pressure. She denies any fever or chills. She denies any nausea, vomiting, or diarrhea. She does have associated orthopnea with her shortness of breath. The patient is very emaciated and ashen in color. She does have a history of lung cancer that was diagnosed back in 2017. She stopped treatment about a year ago and has had no follow-up on her lung cancer since that time. She states that her chemo treatments were killing her and that is why she stopped taking treatment. She has been unable to walk and is using a wheelchair. Upon admission to the emergency department she was found to have a white count of 37,000. Her troponin was elevated at 1.86. She had an elevated lactic acid at 2.3. Her PO2 was 53.2 and her pH was 7.48. She had a platelet count of 887,000. Her preliminary EF on her echocardiogram is less than 20%. She denies any cardiac history and denies any chest pain or pressure. [facility] History I have reviewed the patient's past medical history: Yes Medical History: Reports:: Cancer (JONAH 4 LUNG), Chronic Obstructive Pulmonary Disease (COPD), Home Oxygen, Lung Disease Denies:: Atherosclerotic Heart Disease, Coronary Artery Disease, Diabetes Mellitus Type 1, Diabetes Mellitus Type 2, Gastroesophageal Reflux Disease(GERD), Myocardial Infarction, Palpitations *Have you ever received a pneumonia vaccine?: No *Have you received a flu vaccine this season?: No Other Medical History: Reports: Anemia, Chemotherapy (She stopped treatment about a year ago). Denies: Hypothyroidism Other Surgeries: Yes: , Tubal Ligation Amputation: No Fractures: No - *Social History Educational Level: Attended High School Smoking Status: Current every day smoker Tobacco Type: cigarettes # Packs/Day (cigarettes): 1 Alcohol Intake: current Alcohol Intake Frequency:: 3 or more drinks per day *Occupational Status:: disabled Housing: house *Travel in the last 8 weeks: None - Psychiatric History Expresses thoughts of harming self/others: None Suicide Plan Description: No Plan Family Hx:: Heart Attack Meds Home Medications Medication Instructions Recorded Confirmed Type Albuterol Sulfate [Albuterol HFA 1 - 2 puffs IH NEEDED PRN 11/26/18 11/26/18 History Inhaler] Diclofenac Sodium [Diclofenac 75mg 75 mg PO BID 11/26/18 11/26/18 History Tab] predniSONE [Prednisone 5mg 5 mg PO DIRECTED 11/26/18 11/26/18 History Tab] Allergies Allergy/AdvReac Type Severity Reaction Status Date / Time No Known Allergies Allergy Verified 09/19/17 09:28 Review of Systems - Constitutional Reports anorexia, Reports fatigue, Reports weakness - *Cardiovascular Reports shortness of breath, Reports shortness of breath with activity - *Respiratory Reports cough, Reports shortness of breath, Reports shortness of breath with activity, Reports excessive phlegm production, Reports wheezing - *Musculoskeletal Reports abnormal walking, Reports body aches - *Neurologic Reports abnormal walking, Reports dizziness, Reports weakness, Denies headache(s), Denies seizure-like activity Exam Vital signs and Labs for Last 24 Hours: Temp Pulse Resp BP Pulse Ox 97.7 F 120 H 24 135/89 93 L 11/26/18 08:27 11/26/18 08:27 11/26/18 08:27 11/26/18 08:27 11/26/18 07:28 Laboratory Results - last 24 hr 11/26/18 05:30: O2 % Room air, ABG pH 7.48 H, ABG pCO2 37.0, ABG pO2 53.2 L, ABG HCO3 26.8 H, ABG Total CO2 27.9 H, ABG O2 Saturation 88 L, ABG Base Excess 3.3 H 11/26/18 05:40: WBC 37.0 H*, RBC 4.40, Hgb 12.6, Hct 41.0, MCV 93.3, MCH 28.7, MCHC 30.8 L, RDW 15.5, Plt Count 887 H, MPV 6.9 L, Neut % (Auto) 88.6 H, Lymph % (Auto) 7.1 L, [place] % (Auto) 3.7, Eos % (Auto) 0.3, Baso % (Auto) 0.3, Neut # (Auto) 32.8 H, Lymph # (Auto) 2.6, [place] # (Auto) 1.4 H, Eos # (Auto) 0.1, Baso # (Auto) 0.1, Total Counted 100, Neutrophils % (Manual) 87 H, Lymphocytes % (Manual) 8 L, Monocytes % (Manual) 5, Platelet Estimate Marked increase, RBC Morphology Normal 11/26/18 05:40: Sodium 133 L, Potassium 3.3 L, Chloride 93 L, Carbon Dioxide 29, Anion Gap 14.3, BUN 6 L, Creatinine 0.54 L, Estimated Creat Clear 58, Estimated GFR 117, Est GFR ( Amer) 141, Glucose 121 H, Calcium 9.0, Total Bilirubin 0.7, AST 51 H, ALT 29, Alkaline Phosphatase 316 H, Troponin I 1.86 H, Total Protein 7.9, Albumin 2.2 L, Globulin 5.7 H, Albumin/Globulin Ratio 0.4 L 11/26/18 05:40: Lactate 2.3 H 11/26/18 07:05: Urine Color Yellow, Urine Appearance Clear, Urine pH 6.5, Ur Specific [place] 1.010, Urine Protein Negative, Urine Glucose (UA) Negative, Urine Ketones Negative, Urine Blood Negative, Urine Nitrate Negative, Urine Bilirubin Negative, Urine Urobilinogen 0.2, Ur Leukocyte Esterase Negative, Urine RBC Occasional, Urine WBC 3-5, Ur Squamous Epith Cells 5-10, Urine Bacteria Trace I & O for Last 24 hours: Intake & Output 11/23/18 11/24/18 11/25/18 11/26/18 23:59 23:59 23:59 23:59 Weight 78 lb Microbiology Reports for the Last 24 Hours: Microbiology 11/26/18 05:40 Sputum - Expectorated Sputum Gram Stain - Final Narrative: EKG #1 is sinus tachycardia with a rate of 146. There is anterior [place] pattern and diffuse ST and T wave abnormalities. EKG #2 is sinus tachycardia with a rate of 149. There is an anterior [place] pattern and diffuse ST and T wave abnormalities. - Constitutional no acute distress, thin, cachectic, chronically ill appearing - *Routine HEENT Exam Head: Present: normocephalic, atraumatic Eye: Present: EOMI, PERRL ENT: Present: mucous membranes moist - *Routine Neck Exam Present: supple, full ROM, normal carotid upstroke. Absent: JVD, carotid bruit, lymphadenopathy - *Routine Respiratory Exam Present: rales, rhonchi, wheezes, diminished air movement - *Routine Cardiovascular Exam Present: Normal S1, Normal S2, tachycardia. Absent: murmur - *Routine Abdominal Exam Present: soft, normoactive bowel sounds. Absent: tenderness, distended - *Routine Extremities Exam Present: full ROM, pulses intact. Absent: cyanosis, clubbing, edema - *Routine Skin Exam Present: intact, warm. Absent: erythema, rash - *Routine Neurological Exam Present: alert, oriented X3, CN II-XII intact. Absent: sensory deficit, motor deficit - Routine Psychiatric Exam Present: normal affect, normal thought process - Detailed Eye Exam Eyelids: Left normal inspection Assessment and Plan (1) Cardiomyopathy Current visit: Yes Status: Acute Category: Medical Code(s): I42.9 - Cardiomyopathy, unspecified (2) Community acquired pneumonia Current visit: Yes Status: Acute Qualifiers: Laterality: right Lung location: unspecified part of lung Qualified Code(s): J18.9 - Pneumonia, unspecified organism Category: Medical Code(s): J18.9 - Pneumonia, unspecified organism (3) Low body mass index (BMI) Current visit: Yes Status: Acute Category: Medical (4) Lung cancer Current visit: Yes Status: Acute Qualifiers: Laterality: right Lung location: unspecified part of lung Qualified Code(s): C34.91 - Malignant neoplasm of unspecified part of right bronchus or lung Category: Medical Code(s): C34.90 - Malignant neoplasm of unspecified part of unspecified bronchus or lung (5) NSTEMI (non-ST elevated myocardial infarction) Current visit: Yes Status: Acute Category: Medical Code(s): I21.4 - Non-ST elevation (NSTEMI) myocardial infarction (6) Sepsis Current visit: Yes Status: Acute Qualifiers: Sepsis type: sepsis due to unspecified organism Qualified Code(s): A41.9 - Sepsis, unspecified organism Category: Medical Code(s): A41.9 - Sepsis, unspecified organism (7) Tobacco use Current visit: Yes Status: Acute Category: Medical Code(s): Z72.0 - Tobacco use (8) Anemia Current visit: No Status: Acute Qualifiers: Anemia type: unspecified type Qualified Code(s): D64.9 - Anemia, unspecified Category: Medical Code(s): D64.9 - Anemia, unspecified (9) Hypokalemia Current visit: No Status: Acute Category: Medical Code(s): E87.6 - Hypokalemia - Assessment and plan all Dx Assessment and Plan for all problems:: Plan: 1. The patient was admitted to the hospital with shortness of breath and an elevated troponin. The patient did have a chest x-ray. There is presumed pneumonia however there is no official read on the chest x-ray. We are currently awaiting results. 2. The patient does have a history of lung cancer that was diagnosed in 2017. She stopped treatment for her lung cancer about a year ago as the patient states that the treatment was killing her. She states that since that time she has had no follow-up on her lung cancer. The patient does not wish to have any follow- up on her lung cancer at this time. 3. Upon admission to the emergency department the patient was found to have a positive troponin at 1.86. However the patient was also hypoxic with a PO2 of 53.2. She also had an elevated lactic acid at 2.3. And a white blood cell count of 37,000. Her platelet count is 887,000. She is tachycardic with a heart rate in the 130s. The patient's elevated troponin is most likely secondary to right heart strain due to hypoxia. No plans for invasive left cardiac catheterization at this time as the patient is likely septic. 4. The preliminary EF on her echocardiogram is less than 20%. She does have cardiomyopathy. The patient does need a cardiac work-up at some point but her lung status/hypoxia and sepsis need to be evaluated first. 5. Her blood pressure is well controlled. 6. The patient is tachycardic which is most likely secondary to sepsis. 7. Tobacco cessation is highly advised and counseled. 8. From a cardiac standpoint, Dr. Aviles recommends that the patient be transferred to a tertiary care facility for further treatment of her hypoxia, sepsis, cardiomyopathy and non-STEMI. I have discussed this with Rosalie Ellis APRN. Thank you for the opportunity to help participate in the care of this patient.
--- NOTE | 2018-11-26 19:52 | Cardiology Report ---
PROCEDURE: 2-D M-mode and color Doppler study INDICATIONS FOR THE TEST: Chest pain COPD+ Heart Murmur Tobacco Smoking+ Palpitations Fatigue Syncope Edema Hypertension Diabetes Mellitus Rheumatic Fever SOB+AVALOS+Obesity Hyperlipidemia Family History HD Additional History PATIENT INFORMATION HEIGHT: 65 WEIGHT: 70 GENDER: Female B/P: 108/82 2-D/M-MODE INTERPRETATION: 2-D MEASUREMENTS OBSERVED VALUES IN CMS Right Ventricular Dimension (RVDd) 2.2 Interventricular Septum (Thickness)(IVsd) 0.5 Left Ventricular Internal Dimensions(LVIDd) 2.8 Left Ventricular Posterior Wall (Thickness)(LVPWd) 0.7 Aortic Root 2.4 Aortic Cusp Separation 1.6 Left Atrial Dimensions (LAD) 3.4 2D 1. Technically difficult study because of the patient's factor and poor acoustic windows 2. Left atrium is mildly enlarged, left ventricle is mildly dilated, severely reduced left ventricular systolic function, visually estimated ejection fraction approximately 25%, there is marked hypokinesis involving the distal septum, anterior, anterior apical wall. Endocardial surfaces are poorly visualized. 3. The right atrium and right ventricle are mildly enlarged, contractility of the right ventricle is mildly reduced. 4. The aortic valve is minimally thickened and fibrosed. 5. The mitral and tricuspid valve leaflets are minimally thickened. 6. No significant pericardial effusion noted. DOPPLER INTERROGATION: Doppler interrogation of the aortic, mitral and tricuspid valvular presence of severe mitral and mild tricuspid regurgitation, tricuspid regurgitation jet velocity is inadequate for accurate assessment of the right ventricular systolic pressure, Doppler evidence of low cardiac output and increased left ventricular end-diastolic pressure seen. Inferior vena cava is not well visualized CONCLUSION: 1. Technically difficult study because of the patient's factor and poor acoustic windows 2. Biatrial enlargement, dilated left ventricle, severely ventricular systolic function, visually estimated ejection fraction 25%, with segmental wall motion abnormality described above, Doppler evidence of low cardiac output state and increased left ventricular end-diastolic pressure seen. 3. Severe mitral and mild tricuspid regurgitation. 4. No significant pericardial effusion noted.
[2018-11-27 07:10] LABS: Anion Gap 12.4 mEq/L (5-15); Calcium 8.4 mg/dL (8.5-10.1)
[2018-11-27 07:13] LABS: Hematocrit 34.3 % (37.0-47.0); Hemoglobin 10.2 g/dL (12.2-16.2); Lymphocytes # 0.9 K/mm3 (0.7-4.5); Lymphocytes % 3.4 % (10-50); Mean Corpuscular HGB Conc 29.7 g/dL (31.8-35.4); Mean Corpuscular Volume 94.3 fl (81-99); Monocytes # 0.8 K/mm3 (0.1-1.0); Monocytes % 3.1 % (1.7-9.3); Neutrophils # 25.1 K/mm3 (1.8-7.8); Neutrophils % 93.4 % (37.0-80.0); Platelet Count 806 K/mm3 (142-424); Red Blood Count 3.64 M/mm3 (4.20-5.40); Red Cell Distribution Width 15.8 % (11.5-17.5); White Blood Count 26.9 K/mm3 (4.8-10.8)
--- NOTE | 2018-11-27 07:49 | Progress Note ---
<Rosalie Ellis - Last Filed: 11/27/18 07:45> Internal Medicine - PN: Subj *Date: 11/27/18 *Time: 07:45 Interval history: Patient more dyspneic at present. She states that started after going to the bathroom. She is not recovered. She does not want a mask because it makes her smother. Did try to eat breakfast. Denies any specific pains. Per nursing: Has been tachycardic. Recently received Ativan and Exam Vital signs and Labs for Last 24 Hours: Temp Pulse Resp BP Pulse Ox 98.0 F 125 H 24 122/86 90 L 11/27/18 04:00 11/27/18 05:54 11/27/18 04:00 11/27/18 04:00 11/27/18 05:54 Laboratory Results - last 24 hr 11/26/18 10:30: Lactate 4.2 H 11/26/18 13:12: Lactate 3.4 H 11/27/18 05:52: Sodium 136, Potassium 3.4 L, Chloride 100, Carbon Dioxide 27, Anion Gap 12.4, BUN 7, Creatinine 0.58, Estimated Creat Clear 60, Estimated GFR 108, Est GFR ( Amer) 130, Glucose 133 H, Calcium 8.4 L, Magnesium 1.6 I & O for Last 24 hours: Intake & Output 11/24/18 11/25/18 11/26/18 11/27/18 11:59 11:59 11:59 11:59 Intake Total 969 / 969 Output Total 325 / 325 Balance 644 / 644 Weight 78 lb 77 lb 5 oz Microbiology Reports for the Last 24 Hours: Microbiology 11/26/18 05:40 Sputum - Expectorated Sputum Gram Stain - Final Radiology Reports for the Last 24 Hours: Chest x-ray 11/26/2018 IMPRESSION: Left lung mass appears to be mildly smaller. Some increased opacity likely consolidation/atelectasis in the right lung with increasing right-sided pleural effusion. 11/26/2018 echocardiogram CONCLUSION: 1. Technically difficult study because of the patient's factor and poor acoustic windows 2. Biatrial enlargement, dilated left ventricle, severely ventricular systolic function, visually estimated ejection fraction 25%, with segmental wall motion abnormality described above, Doppler evidence of low cardiac output state and increased left ventricular end-diastolic pressure seen. 3. Severe mitral and mild tricuspid regurgitation. 4. No significant pericardial effusion noted. - Constitutional moderate distress, cachectic - *Routine Respiratory Exam Present: accessory muscle use Comments: Bilateral crackles throughout - *Routine Cardiovascular Exam Present: RRR, tachycardia Comments: Monitor showing sinus tachycardia at about 130 - *Routine Abdominal Exam Present: normoactive bowel sounds. Absent: tenderness - *Routine Extremities Exam Absent: edema - *Routine Neurological Exam Present: alert, oriented X3 Assessment and Plan (1) Sepsis Current visit: Yes Status: Acute Qualifiers: Sepsis type: sepsis due to unspecified organism Qualified Code(s): A41.9 - Sepsis, unspecified organism Category: Medical Code(s): A41.9 - Sepsis, unspecified organism (2) Cardiomyopathy Current visit: Yes Status: Acute Category: Medical Code(s): I42.9 - Cardiomyopathy, unspecified (3) Community acquired pneumonia Current visit: Yes Status: Acute Qualifiers: Laterality: right Lung location: unspecified part of lung Qualified Code(s): J18.9 - Pneumonia, unspecified organism Category: Medical Code(s): J18.9 - Pneumonia, unspecified organism (4) Low body mass index (BMI) Current visit: Yes Status: Acute Category: Medical (5) Lung cancer Current visit: Yes Status: Acute Qualifiers: Laterality: right Lung location: unspecified part of lung Qualified Code(s): C34.91 - Malignant neoplasm of unspecified part of right bronchus or lung Category: Medical Code(s): C34.90 - Malignant neoplasm of unspecified part of unspecified bronchus or lung (6) NSTEMI (non-ST elevated myocardial infarction) Current visit: Yes Status: Acute Category: Medical Code(s): I21.4 - Non-ST elevation (NSTEMI) myocardial infarction (7) Tobacco use Current visit: Yes Status: Acute Category: Medical Code(s): Z72.0 - Tobacco use (8) Anemia Current visit: No Status: Acute Qualifiers: Anemia type: unspecified type Qualified Code(s): D64.9 - Anemia, unspecified Category: Medical Code(s): D64.9 - Anemia, unspecified (9) Hypokalemia Current visit: No Status: Acute Category: Medical Code(s): E87.6 - Hypokalemia (10) Acute respiratory failure Current visit: Yes Status: Acute Category: Medical Code(s): J96.00 - Acute respiratory failure, unspecified whether with hypoxia or hypercapnia - Assessment and plan all Dx Assessment and Plan for all problems:: We will give stat dose of Lasix 40 IV, morphine 2 mg, and if blood pressure stable will give p.o. metoprolol 12.5 mg. We will also decrease IV fluids down to 25 NR. <Bonny Carty - Last Filed: 11/27/18 10:09> Internal Medicine - PN: Subj *Date: 11/27/18 *Time: 10:06 Exam Vital signs and Labs for Last 24 Hours: Temp Pulse Resp BP Pulse Ox 97.3 F L 130 H 26 H 141/98 H 88 L 11/27/18 08:00 11/27/18 08:00 11/27/18 08:04 11/27/18 08:00 11/27/18 08:00 Laboratory Results - last 24 hr 11/26/18 10:30: Lactate 4.2 H 11/26/18 13:12: Lactate 3.4 H 11/27/18 05:52: WBC 26.9 H* D, RBC 3.64 L, Hgb 10.2 L, Hct 34.3 L, MCV 94.3, MCH 28.0, MCHC 29.7 L, RDW 15.8, Plt Count 806 H, MPV 7.0 L, Neut % (Auto) 93.4 H, Lymph % (Auto) 3.4 L, [place] % (Auto) 3.1, Eos % (Auto) 0.0 L, Baso % (Auto) 0.0 L , Neut # (Auto) 25.1 H, Lymph # (Auto) 0.9, [place] # (Auto) 0.8, Eos # (Auto) 0.0, Baso # (Auto) 0.0 11/27/18 05:52: Sodium 136, Potassium 3.4 L, Chloride 100, Carbon Dioxide 27, Anion Gap 12.4, BUN 7, Creatinine 0.58, Estimated Creat Clear 60, Estimated GFR 108, Est GFR ( Amer) 130, Glucose 133 H, Calcium 8.4 L, Magnesium 1.6 I & O for Last 24 hours: Intake & Output 11/24/18 11/25/18 11/26/1819 11:59 11:59 11:59 11:59 Intake Total 2545 / 2545 Output Total 650 / 650 Balance 1895 / 1895 Weight 78 lb 77 lb 5 oz Microbiology Reports for the Last 24 Hours: Microbiology 11/26/18 05:40 Sputum - Expectorated Sputum Gram Stain - Final Assessment and Plan (1) Sepsis Current visit: Yes Status: Acute Qualifiers: Sepsis type: sepsis due to unspecified organism Qualified Code(s): A41.9 - Sepsis, unspecified organism Category: Medical Code(s): A41.9 - Sepsis, unspecified organism (2) Cardiomyopathy Current visit: Yes Status: Acute Category: Medical Code(s): I42.9 - Cardiomyopathy, unspecified (3) Community acquired pneumonia Current visit: Yes Status: Acute Qualifiers: Laterality: right Lung location: unspecified part of lung Qualified Code(s): J18.9 - Pneumonia, unspecified organism Category: Medical Code(s): J18.9 - Pneumonia, unspecified organism (4) Low body mass index (BMI) Current visit: Yes Status: Acute Category: Medical (5) Lung cancer Current visit: Yes Status: Acute Qualifiers: Laterality: right Lung location: unspecified part of lung Qualified Code(s): C34.91 - Malignant neoplasm of unspecified part of right bronchus or lung Category: Medical Code(s): C34.90 - Malignant neoplasm of unspecified part of unspecified bronchus or lung (6) NSTEMI (non-ST elevated myocardial infarction) Current visit: Yes Status: Acute Category: Medical Code(s): I21.4 - Non-ST elevation (NSTEMI) myocardial infarction (7) Tobacco use Current visit: Yes Status: Acute Category: Medical Code(s): Z72.0 - Tobacco use (8) Anemia Current visit: No Status: Acute Qualifiers: Anemia type: unspecified type Qualified Code(s): D64.9 - Anemia, unspecified Category: Medical Code(s): D64.9 - Anemia, unspecified (9) Hypokalemia Current visit: No Status: Acute Category: Medical Code(s): E87.6 - Hypokalemia (10) Acute respiratory failure Current visit: Yes Status: Acute Category: Medical Code(s): J96.00 - Acute respiratory failure, unspecified whether with hypoxia or hypercapnia - Assessment and plan all Dx Assessment and Plan for all problems:: Will try vapotherm. Patient is willing to take her abx at this time. She is still refusing any transfer of care and/or any intervention for her lung cancer along with her heart failure. Her prognosis is still poor at this time given her lung cancer, sepsis 2/2 CAP and acute on chronic HFrEF. She denies hospice care at this time as well.
[2018-11-27 10:17] LABS: Lymphocytes % 6 % (10-50); Monocytes % 2 % (2-9); Neutrophils % 92 % (42-76); Total Cells Counted 100
[2018-11-27 10:27] LABS: Hypochromasia 1+
[2018-11-27 10:28] LABS: Macrocytosis 1+
--- NOTE | 2018-11-27 10:54 | Progress Note ---
Subjective Date: 11/27/18 Time: 09:30 Principal diagnosis: chf, non-stemi Interval history: This is a 58-year-old white female who was admitted to the hospital with shortness of breath. The patient does have a history of lung cancer and she stopped treatment about 1 year ago and she is not interested in treatment at this time. The patient does have an elevated troponin consistent with a non- STEMI and she has cardiomyopathy with an ejection fraction of 25%. The patient is currently being treated for sepsis. It was recommended that that she be transferred to a tertiary care facility. However the patient spoke with her family doctor about this and has decided not to be transferred. She does not want any cardiac care at this time or any treatment for her lung cancer. The only treatment she is currently wanting is treatment for her sepsis. I have had a long discussion with the patient about her ejection fraction and severe mitral regurgitation. Patient is aware of this prognosis from her family doctor. She still states that she does not want any treatment of her heart disease. She denies any chest pain or pressure. She does state that her shortness of breath has improved a little bit. She is laying flat when I walk into the room today. She denies any fevers, chills, nausea, vomiting, diarrhea. The patient still appears very emaciated and ashen in color. The patient's family doctor did discuss hospice care with her, and she states that she is not ready for that at this time. Exam Vital signs and Labs for Last 24 Hours: Temp Pulse Resp BP Pulse Ox 97.3 F L 130 H 26 H 141/98 H 88 L 11/27/18 08:00 11/27/18 08:00 11/27/18 08:04 11/27/18 08:00 11/27/18 08:00 Laboratory Results - last 24 hr 11/26/18 10:30: Lactate 4.2 H 11/26/18 13:12: Lactate 3.4 H 11/27/18 05:52: WBC 26.9 H* D, RBC 3.64 L, Hgb 10.2 L, Hct 34.3 L, MCV 94.3, MCH 28.0, MCHC 29.7 L, RDW 15.8, Plt Count 806 H, MPV 7.0 L, Neut % (Auto) 93.4 H, Lymph % (Auto) 3.4 L, [place] % (Auto) 3.1, Eos % (Auto) 0.0 L, Baso % (Auto) 0.0 L , Neut # (Auto) 25.1 H, Lymph # (Auto) 0.9, [place] # (Auto) 0.8, Eos # (Auto) 0.0, Baso # (Auto) 0.0, Total Counted 100, Neutrophils % (Manual) 92 H, Lymphocytes % (Manual) 6 L, Monocytes % (Manual) 2, Platelet Estimate Marked increase, Hypochromasia 1+, Macrocytosis 1+ 11/27/18 05:52: Sodium 136, Potassium 3.4 L, Chloride 100, Carbon Dioxide 27, Anion Gap 12.4, BUN 7, Creatinine 0.58, Estimated Creat Clear 60, Estimated GFR 108, Est GFR ( Amer) 130, Glucose 133 H, Calcium 8.4 L, Magnesium 1.6 I & O for Last 24 hours: Intake & Output 11/24/18 11/25/18 11/26/18 11/27/18 23:59 23:59 23:59 23:59 Intake Total 969 / 969 1576 / 1576 Output Total 325 / 325 325 / 325 Balance 644 / 644 1251 / 1251 Weight 78 lb 77 lb 5 oz Microbiology Reports for the Last 24 Hours: Microbiology 11/26/18 05:40 Sputum - Expectorated Sputum Gram Stain - Final Narrative: Her telemetry strip shows sinus rhythm with a rate of 133. Her echocardiogram shows: 1. Technically difficult study because of the patient's factor and poor acoustic windows 2. Biatrial enlargement, dilated left ventricle, severely ventricular systolic function, visually estimated ejection fraction 25%, with segmental wall motion abnormality described above, Doppler evidence of low cardiac output state and increased left ventricular end-diastolic pressure seen. 3. Severe mitral and mild tricuspid regurgitation. 4. No significant pericardial effusion noted. - Constitutional thin, cachectic, chronically ill appearing - *Routine HEENT Exam Head: Present: normocephalic, atraumatic Eye: Present: EOMI, PERRL ENT: Present: mucous membranes moist - *Routine Neck Exam Present: supple, full ROM, normal carotid upstroke. Absent: JVD, carotid bruit, lymphadenopathy - *Routine Respiratory Exam Present: rales, rhonchi, wheezes, diminished air movement - *Routine Cardiovascular Exam Present: Normal S1, Normal S2, tachycardia. Absent: murmur - *Routine Abdominal Exam Present: soft, normoactive bowel sounds. Absent: tenderness, distended - *Routine Extremities Exam Present: full ROM, pulses intact. Absent: cyanosis, clubbing, edema - *Routine Skin Exam Present: intact, warm. Absent: rash Comments: Ashen in color - *Routine Neurological Exam Present: alert, oriented X3, CN II-XII intact. Absent: sensory deficit, motor deficit - Detailed Eye Exam Eyelids: Left normal inspection Progress Note: A&P (1) Cardiomyopathy Status: Acute Current Visit: Yes (2) LV dysfunction Status: Acute Current Visit: Yes (3) Severe mitral regurgitation Status: Acute Current Visit: Yes (4) Sepsis Status: Acute Current Visit: Yes (5) Cardiomyopathy Status: Acute Current Visit: Yes (6) Community acquired pneumonia Status: Acute Current Visit: Yes (7) Low body mass index (BMI) Status: Acute Current Visit: Yes (8) Lung cancer Status: Acute Current Visit: Yes (9) NSTEMI (non-ST elevated myocardial infarction) Status: Acute Current Visit: Yes (10) Tobacco use Status: Acute Current Visit: Yes (11) Anemia Status: Acute Current Visit: No (12) Hypokalemia Status: Acute Current Visit: No (13) Acute respiratory failure Status: Acute Current Visit: Yes Assessment and Plan for All Diagnoses:: plan: 1. The patient was admitted to the hospital with shortness of breath and an elevated troponin. Her x-ray does show her lung mass as well as presumed pneumonia. The patient is being treated for her pneumonia by her primary care provider. 2. The patient is also being treated for sepsis at this time. That is the only thing that she is agreeable to being treated for at this time. Will defer this to her primary care provider. 3. The patient does have an elevated troponin and an ejection fraction of 25% with severe mitral regurgitation and low cardiac output. Dr. MARTINEZ presumes that the patient did have a lateral myocardial infarction which has likely led to her severe mitral regurgitation. If the patient did not have a lateral PA, then she would most likely need valve replacement. However, given her sepsis is recommended that the patient be transferred to a tertiary care facility for further work up and treatment. She has refused at this time. 4. The patient adamantly states that she does not want any treatment for her cardiac conditions nor treatment for her lung cancer. She states that treatment for her lung cancer was killing her and she does not want to do any further treatment measures at this time. Have had a long discussion with the patient about her cardiac status and poor prognosis if this goes untreated and even with treatment. 5. The patient remains tachycardic today. This is most likely secondary to sepsis. 6. Her blood pressure is well controlled. 7. Tobacco cessation is advised and counseled. 8. Patient's anemia is being managed by her primary care provider. 9. Patient is a DNR/DNI. She declined hospice care at this point. 10. No further recommendations at this time from a cardiac standpoint, unless the patient changes her mind and wants cardiac treatment. Thank you for the opportunity to help participate in the care of this patient.
--- NOTE | 2018-11-28 08:49 | Progress Note ---
<Alka Stoner - Last Filed: 11/28/18 08:47> Internal Medicine - PN: Subj *Date: 11/28/18 *Time: 08:47 Interval history: Patient states she is feeling a little bit better today. The Vapotherm helps her breathe. She denies any pain or shortness of breath. She states she did not rest well last night but did try to eat her breakfast this morning. Exam Vital signs and Labs for Last 24 Hours: Temp Pulse Resp BP Pulse Ox 98.7 F 128 H 20 115/51 L 90 L 11/28/18 07:59 11/28/18 07:59 11/28/18 07:59 11/28/18 07:59 11/28/18 07:59 Laboratory Results - last 24 hr 11/27/18 05:52: Total Counted 100, Neutrophils % (Manual) 92 H, Lymphocytes % (Manual) 6 L, Monocytes % (Manual) 2, Platelet Estimate Marked increase, Hypochromasia 1+, Macrocytosis 1+ I & O for Last 24 hours: Intake & Output 11/25/18 11/26/18 11/27/18 11/28/18 11:59 11:59 11:59 11:59 Intake Total 2545 / 2545 1284 / 1284 Output Total 1650 / 1650 1150 / 1150 Balance 895 / 895 134 / 134 Weight 78 lb 77 lb 5 oz 77 lb 4 oz Microbiology Reports for the Last 24 Hours: Microbiology 11/26/18 05:38 Blood Blood Culture - Preliminary NO GROWTH AFTER 48 HOURS 11/26/18 05:38 Blood Blood Culture - Preliminary NO GROWTH AFTER 48 HOURS - Constitutional no acute distress - *Routine Respiratory Exam Present: rhonchi, wheezes - *Routine Cardiovascular Exam Present: tachycardia - *Routine Abdominal Exam Present: soft, normoactive bowel sounds. Absent: tenderness - *Routine Extremities Exam Absent: cyanosis, clubbing, edema - *Routine Skin Exam Present: warm. Absent: rash - *Routine Neurological Exam Present: alert, oriented X3 Assessment and Plan (1) Cardiomyopathy Current visit: Yes Status: Acute Category: Medical Code(s): I42.9 - Cardiomyopathy, unspecified (2) LV dysfunction Current visit: Yes Status: Acute Category: Medical Code(s): I51.9 - Heart disease, unspecified (3) Severe mitral regurgitation Current visit: Yes Status: Acute Category: Medical Code(s): I34.0 - Nonrheumatic mitral (valve) insufficiency (4) Sepsis Current visit: Yes Status: Acute Qualifiers: Sepsis type: sepsis due to unspecified organism Qualified Code(s): A41.9 - Sepsis, unspecified organism Category: Medical Code(s): A41.9 - Sepsis, unspecified organism (5) Cardiomyopathy Current visit: Yes Status: Acute Category: Medical Code(s): I42.9 - Cardiomyopathy, unspecified (6) Community acquired pneumonia Current visit: Yes Status: Acute Qualifiers: Laterality: right Lung location: unspecified part of lung Qualified Code(s): J18.9 - Pneumonia, unspecified organism Category: Medical Code(s): J18.9 - Pneumonia, unspecified organism (7) Low body mass index (BMI) Current visit: Yes Status: Acute Category: Medical (8) Lung cancer Current visit: Yes Status: Acute Qualifiers: Laterality: right Lung location: unspecified part of lung Qualified Code(s): C34.91 - Malignant neoplasm of unspecified part of right bronchus or lung Category: Medical Code(s): C34.90 - Malignant neoplasm of unspecified part of unspecified bronchus or lung (9) NSTEMI (non-ST elevated myocardial infarction) Current visit: Yes Status: Acute Category: Medical Code(s): I21.4 - Non-ST elevation (NSTEMI) myocardial infarction (10) Tobacco use Current visit: Yes Status: Acute Category: Medical Code(s): Z72.0 - Tobacco use (11) Anemia Current visit: No Status: Acute Qualifiers: Anemia type: unspecified type Qualified Code(s): D64.9 - Anemia, unspecifie d Category: Medical Code(s): D64.9 - Anemia, unspecified (12) Hypokalemia Current visit: No Status: Acute Category: Medical Code(s): E87.6 - Hypokalemia (13) Acute respiratory failure Current visit: Yes Status: Acute Category: Medical Code(s): J96.00 - Acute respiratory failure, unspecified whether with hypoxia or hypercapnia - Assessment and plan all Dx Assessment and Plan for all problems:: Will continue Vapotherm as this has made patient more comfortable. Cardiology has seen the patient and note is appreciated. Will discuss further care with Dr. Carty. <CarlozBonny - Last Filed: 11/28/18 10:45> Internal Medicine - PN: Subj *Date: 11/28/18 *Time: 10:43 Exam Vital signs and Labs for Last 24 Hours: Temp Pulse Resp BP Pulse Ox 98.7 F 120 H 20 115/51 L 98 11/28/18 07:59 11/28/18 09:40 11/28/18 09:40 11/28/18 07:59 11/28/18 10:10 I & O for Last 24 hours: Intake & Output 11/25/18 11/26/18 11/27/18 11/28/18 11:59 11:59 11:59 11:59 Intake Total 2545 / 2545 1284 / 1284 Output Total 1650 / 1650 1650 / 1650 Balance 895 / 895 -366 / -366 Weight 78 lb 77 lb 5 oz 77 lb 4 oz Microbiology Reports for the Last 24 Hours: Microbiology 11/26/18 05:40 Sputum - Expectorated Sputum Gram Stain - Final 11/26/18 05:40 Sputum - Expectorated Sputum Sputum Culture - Preliminary Gram Positive Cocci 11/26/18 05:38 Blood Blood Culture - Preliminary NO GROWTH AFTER 48 HOURS 11/26/18 05:38 Blood Blood Culture - Preliminary NO GROWTH AFTER 48 HOURS Assessment and Plan (1) Community acquired pneumonia Current visit: Yes Status: Acute Qualifiers: Laterality: right Lung location: unspecified part of lung Qualified Code(s): J18.9 - Pneumonia, unspecified organism Category: Medical Code(s): J18.9 - Pneumonia, unspecified organism (2) Cardiomyopathy Current visit: Yes Status: Acute Category: Medical Code(s): I42.9 - Cardiomyopathy, unspecified (3) LV dysfunction Current visit: Yes Status: Acute Category: Medical Code(s): I51.9 - Heart disease, unspecified (4) Severe mitral regurgitation Current visit: Yes Status: Acute Category: Medical Code(s): I34.0 - Nonrheumatic mitral (valve) insufficiency (5) Sepsis Current visit: Yes Status: Acute Qualifiers: Sepsis type: sepsis due to unspecified organism Qualified Code(s): A41.9 - Sepsis, unspecified organism Category: Medical Code(s): A41.9 - Sepsis, unspecified organism (6) Cardiomyopathy Current visit: Yes Status: Acute Category: Medical Code(s): I42.9 - Cardiomyopathy, unspecified (7) Low body mass index (BMI) Current visit: Yes Status: Acute Category: Medical (8) Lung cancer Current visit: Yes Status: Acute Qualifiers: Laterality: right Lung location: unspecified part of lung Qualified Code(s): C34.91 - Malignant neoplasm of unspecified part of right bronchus or lung Category: Medical Code(s): C34.90 - Malignant neoplasm of unspecified part of unspecified bronchus or lung (9) NSTEMI (non-ST elevated myocardial infarction) Current visit: Yes Status: Acute Category: Medical Code(s): I21.4 - Non-ST elevation (NSTEMI) myocardial infarction (10) Tobacco use Current visit: Yes Status: Acute Category: Medical Code(s): Z72.0 - Tobacco use (11) Anemia Current visit: No Status: Acute Qualifiers: Anemia type: unspecified type Qualified Code(s): D64.9 - Anemia, unspecified Category: Medical Code(s): D64.9 - Anemia, unspecified (12) Hypokalemia Current visit: No Status: Acute Category: Medical Code(s): E87.6 - Hypokalemia (13) Acute respiratory failure Current visit: Yes Status: Acute Category: Medical Code(s): J96.00 - Acute respiratory failure, unspecified whether with hypoxia or hypercapnia - Assessment and plan all Dx Assessment and Plan for all problems:: sepsis resolved with some residual hypoxia. will wean off vapotherm. Might benefit from hospice as her prognosis is poor and her expectancy is < 6 months or so given lung cancer and severe heart failure, will have care management have a conversation with her to see if she is agreeable.
--- NOTE | 2018-11-29 08:32 | Progress Note ---
<Alka Stoner - Last Filed: 11/29/18 08:29> Internal Medicine - PN: Subj *Date: 11/29/18 *Time: 08:29 Interval history: Patient was sleeping when I entered the room. She states she had a rough night and did not sleep at all. She is very tired this morning. She denies any pain or shortness of breath. Exam Vital signs and Labs for Last 24 Hours: Temp Pulse Resp BP Pulse Ox 97.8 F 120 H 20 109/73 L 84 L 11/29/18 07:40 11/29/18 07:40 11/29/18 07:40 11/29/18 07:40 11/29/18 07:40 Laboratory Results - last 24 hr 11/29/18 05:29: POC Glucose 158 H I & O for Last 24 hours: Intake & Output 11/26/18 11/27/18 11/28/18 11/29/18 11:59 11:59 11:59 11:59 Intake Total 2545 / 2545 1284 / 1284 635 / 635 Output Total 1650 / 1650 1650 / 1650 800 / 800 Balance 895 / 895 -366 / -366 -165 / -165 Weight 78 lb 77 lb 5 oz 77 lb 4 oz 77 lb 4 oz Microbiology Reports for the Last 24 Hours: Microbiology 11/26/18 05:40 Sputum - Expectorated Sputum Gram Stain - Final 11/26/18 05:40 Sputum - Expectorated Sputum Sputum Culture - Preliminary Gram Positive Cocci 11/26/18 05:38 Blood Blood Culture - Preliminary NO GROWTH AFTER 48 HOURS 11/26/18 05:38 Blood Blood Culture - Preliminary NO GROWTH AFTER 48 HOURS - Constitutional no acute distress - *Routine Respiratory Exam Present: rhonchi (bilaterally) - *Routine Cardiovascular Exam Present: RRR - *Routine Abdominal Exam Present: soft, normoactive bowel sounds. Absent: tenderness - *Routine Extremities Exam Absent: cyanosis, clubbing, edema - *Routine Skin Exam Present: warm. Absent: rash - *Routine Neurological Exam Present: alert, oriented X3 Assessment and Plan (1) Community acquired pneumonia Current visit: Yes Status: Acute Qualifiers: Laterality: right Lung location: unspecified part of lung Qualified Code(s): J18.9 - Pneumonia, unspecified organism Category: Medical Code(s): J18.9 - Pneumonia, unspecified organism (2) Cardiomyopathy Current visit: Yes Status: Acute Category: Medical Code(s): I42.9 - Cardiomyopathy, unspecified (3) LV dysfunction Current visit: Yes Status: Acute Category: Medical Code(s): I51.9 - Heart disease, unspecified (4) Severe mitral regurgitation Current visit: Yes Status: Acute Category: Medical Code(s): I34.0 - Nonrheumatic mitral (valve) insufficiency (5) Sepsis Current visit: Yes Status: Acute Qualifiers: Sepsis type: sepsis due to unspecified organism Qualified Code(s): A41.9 - Sepsis, unspecified organism Category: Medical Code(s): A41.9 - Sepsis, unspecified organism (6) Cardiomyopathy Current visit: Yes Status: Acute Category: Medical Code(s): I42.9 - Cardiomyopathy, unspecified (7) Low body mass index (BMI) Current visit: Yes Status: Acute Category: Medical (8) Lung cancer Current visit: Yes Status: Acute Qualifiers: Laterality: right Lung location: unspecified part of lung Qualified Code(s): C34.91 - Malignant neoplasm of unspecified part of right bronchus or lung Category: Medical Code(s): C34.90 - Malignant neoplasm of unspecified part of unspecified bronchus or lung (9) NSTEMI (non-ST elevated myocardial infarction) Current visit: Yes Status: Acute Category: Medical Code(s): I21.4 - Non-ST elevation (NSTEMI) myocardial infarction (10) Tobacco use Current visit: Yes Status: Acute Category: Medical Code(s): Z72.0 - Tobacco use (11) Anemia Current visit: No Status: Acute Qualifiers: Anemia type: unspecified type Qualified Code(s): D64.9 - Anemia, unspecified Category: Medical Code(s): D64.9 - Anemia, unspecified (12) Hypokalemia Current visit: No Status: Acute Category: Medical Code(s): E87.6 - Hypokalemia (13) Acute respiratory failure Current visit: Yes Status: Acute Category: Medical Code(s): J96.00 - Acute respiratory failure, unspecified whether with hypoxia or hypercapnia - Assessment and plan all Dx Assessment and Plan for all problems:: Will continue current care and discuss further care with Dr. Carty. <Bonny Carty - Last Filed: 11/29/18 10:44> Internal Medicine - PN: Subj *Date: 11/29/18 *Time: 10:40 Exam Vital signs and Labs for Last 24 Hours: Temp Pulse Resp BP Pulse Ox 97.8 F 110 H 20 109/73 L 97 11/29/18 07:40 11/29/18 08:00 11/29/18 07:40 11/29/18 07:40 11/29/18 09:21 Laboratory Results - last 24 hr 11/29/18 05:29: POC Glucose 158 H I & O for Last 24 hours: Intake & Output 11/26/18 11/27/18 11/28/18 11/29/18 11:59 11:59 11:59 11:59 Intake Total 2545 / 2545 1284 / 1284 635 / 635 Output Total 1650 / 1650 1650 / 1650 800 / 800 Balance 895 / 895 -366 / -366 -165 / -165 Weight 78 lb 77 lb 5 oz 77 lb 4 oz 77 lb 4 oz Microbiology Reports for the Last 24 Hours: Microbiology 11/26/18 05:40 Sputum - Expectorated Sputum Gram Stain - Final 11/26/18 05:40 Sputum - Expectorated Sputum Sputum Culture - Preliminary Gram Positive Cocci Assessment and Plan (1) Community acquired pneumonia Current visit: Yes Status: Acute Qualifiers: Laterality: right Lung location: unspecified part of lung Qualified Code(s): J18.9 - Pneumonia, unspecified organism Category: Medical Code(s): J18.9 - Pneumonia, unspecified organism (2) Cardiomyopathy Current visit: Yes Status: Acute Category: Medical Code(s): I42.9 - Cardiomyopathy, unspecified (3) LV dysfunction Current visit: Yes Status: Acute Category: Medical Code(s): I51.9 - Heart disease, unspecified (4) Severe mitral regurgitation Current visit: Yes Status: Acute Category: Medical Code(s): I34.0 - Nonrheumatic mitral (valve) insufficiency (5) Sepsis Current visit: Yes Status: Acute Qualifiers: Sepsis type: sepsis due to unspecified organism Qualified Code(s): A41.9 - Sepsis, unspecified organism Category: Medical Code(s): A41.9 - Sepsis, unspecified organism (6) Cardiomyopathy Current visit: Yes Status: Acute Category: Medical Code(s): I42.9 - Cardiomyopathy, unspecified (7) Low body mass index (BMI) Current visit: Yes Status: Acute Category: Medical (8) Lung cancer Current visit: Yes Status: Acute Qualifiers: Laterality: right Lung location: unspecified part of lung Qualified Code(s): C34.91 - Malignant neoplasm of unspecified part of right bronchus or lung Category: Medical Code(s): C34.90 - Malignant neoplasm of unspecified part of unspecified bronchus or lung (9) NSTEMI (non-ST elevated myocardial infarction) Current visit: Yes Status: Acute Category: Medical Code(s): I21.4 - Non-ST elevation (NSTEMI) myocardial infarction (10) Tobacco use Current visit: Yes Status: Acute Category: Medical Code(s): Z72.0 - Tobacco use (11) Anemia Current visit: No Status: Acute Qualifiers: Anemia type: unspecified type Qualified Code(s): D64.9 - Anemia, unspecified Category: Medical Code(s): D64.9 - Anemia, unspecified (12) Hypokalemia Current visit: No Status: Acute Category: Medical Code(s): E87.6 - Hypokalemia (13) Acute respiratory failure Current visit: Yes Status: Acute Category: Medical Code(s): J96.00 - Acute respiratory failure, unspecified whether with hypoxia or hypercapnia - Assessment and plan all Dx Assessment and Plan for all problems:: Patient wants to think about hospice and make a decision sunday. Might benefit from Trilogy machine. Will consult with care management on Sunday to see if she qualifies for either hospice or trilogy, or both. Will try to wean off vapotherm for now. Continue abx.
--- NOTE | 2018-11-30 09:06 | Progress Note ---
Internal Medicine - PN: Subj *Date: 11/30/18 *Time: 09:03 Interval history: After reviewing the notes I would believe that the patient has improved this morning. She is alert and talkative and comfortable on the Vapotherm. She has bilateral decreased breath sounds and rhonchi. She has no leg edema. Her tongue is a bit dry. Exam Vital signs and Labs for Last 24 Hours: Temp Pulse Resp BP Pulse Ox 98.0 F 120 H 20 120/77 92 L 11/30/18 04:00 11/30/18 08:00 11/30/18 04:00 11/30/18 04:00 11/30/18 08:37 I & O for Last 24 hours: Intake & Output 11/27/18 11/28/18 11/29/18 11/30/18 11:59 11:59 11:59 11:59 Intake Total 2545 / 2545 1284 / 1284 635 / 635 720 / 720 Output Total 1650 / 1650 1650 / 1650 800 / 800 900 / 900 Balance 895 / 895 -366 / -366 -165 / -165 -180 / -180 Weight 77 lb 5 oz 77 lb 4 oz 77 lb 4 oz 85 lb Microbiology Reports for the Last 24 Hours: Microbiology 11/26/18 05:40 Sputum - Expectorated Sputum Gram Stain - Final 11/26/18 05:40 Sputum - Expectorated Sputum Sputum Culture - Final Streptococcus pneumoniae - Constitutional no acute distress - *Routine HEENT Exam Head: Present: normocephalic Eye: Present: PERRL ENT: Present: mucous membranes dry - *Routine Neck Exam Present: supple - *Routine Respiratory Exam Present: decreased breath sounds, rhonchi - *Routine Cardiovascular Exam Present: RRR - *Routine Extremities Exam Absent: edema Assessment and Plan (1) Acute respiratory failure Current visit: Yes Status: Acute Category: Medical Code(s): J96.00 - Acute respiratory failure, unspecified whether with hypoxia or hypercapnia (2) Community acquired pneumonia Current visit: Yes Status: Acute Qualifiers: Laterality: right Lung location: unspecified part of lung Qualified Code(s): J18.9 - Pneumonia, unspecified organism Category: Medical Code(s): J18.9 - Pneumonia, unspecified organism (3) Cardiomyopathy Current visit: Yes Status: Acute Category: Medical Code(s): I42.9 - Cardiomyopathy, unspecified (4) LV dysfunction Current visit: Yes Status: Acute Category: Medical Code(s): I51.9 - Heart disease, unspecified (5) Sepsis Current visit: Yes Status: Acute Qualifiers: Sepsis type: sepsis due to unspecified organism Qualified Code(s): A41.9 - Sepsis, unspecified organism Category: Medical Code(s): A41.9 - Sepsis, unspecified organism (6) Lung cancer Current visit: Yes Status: Acute Qualifiers: Laterality: right Lung location: unspecified part of lung Qualified Code(s): C34.91 - Malignant neoplasm of unspecified part of right bronchus or lung Category: Medical Code(s): C34.90 - Malignant neoplasm of unspecified part of unspecified bronchus or lung (7) Severe mitral regurgitation Current visit: Yes Status: Acute Category: Medical Code(s): I34.0 - Nonrheumatic mitral (valve) insufficiency (8) Cardiomyopathy Current visit: Yes Status: Acute Category: Medical Code(s): I42.9 - Cardiomyopathy, unspecified (9) Low body mass index (BMI) Current visit: Yes Status: Acute Category: Medical (10) NSTEMI (non-ST elevated myocardial infarction) Current visit: Yes Status: Acute Category: Medical Code(s): I21.4 - Non-ST elevation (NSTEMI) myocardial infarction (11) Tobacco use Current visit: Yes Status: Acute Category: Medical Code(s): Z72.0 - Tobacco use (12) Anemia Current visit: No Status: Acute Qualifiers: Anemia type: unspecified type Qualified Code(s): D64.9 - Anemia, unspecified Category: Medical Code(s): D64.9 - Anemia, unspecified (13) Hypokalemia Current visit: No Status: Acute Category: Medical Code(s): E87.6 - Hypokalemia - Assessment and plan all Dx Assessment and Plan for all problems:: We will proceed with trials of nasal cannula and reliance on Vapotherm when necessary. Follow-up blood work is ordered.
[2018-11-30 10:07] LABS: Hematocrit 32.3 % (37.0-47.0); Hemoglobin 9.6 g/dL (12.2-16.2); Lymphocytes # 0.6 K/mm3 (0.7-4.5); Mean Corpuscular HGB Conc 29.8 g/dL (31.8-35.4); Mean Corpuscular Volume 94.1 fl (81-99); Mean Platelet Volume 6.7 fl (7.4-10.4); Monocytes # 0.6 K/mm3 (0.1-1.0); Monocytes % 3.7 % (1.7-9.3); Neutrophils # 14.7 K/mm3 (1.8-7.8); Neutrophils % 92.2 % (37.0-80.0); Platelet Count 649 K/mm3 (142-424); Red Blood Count 3.44 M/mm3 (4.20-5.40); Red Cell Distribution Width 15.8 % (11.5-17.5); White Blood Count 15.9 K/mm3 (4.8-10.8)
[2018-11-30 10:16] LABS: Anion Gap 8.9 mEq/L (5-15); Calcium 8.1 mg/dL (8.5-10.1)
--- NOTE | 2018-11-30 10:29 | Progress Note ---
Internal Medicine - PN: Subj *Date: 11/30/18 *Time: 10:28 Exam Vital signs and Labs for Last 24 Hours: Temp Pulse Resp BP Pulse Ox 98.2 F 123 H 24 119/78 94 L 11/30/18 08:00 11/30/18 08:00 11/30/18 08:00 11/30/18 08:00 11/30/18 09:50 Laboratory Results - last 24 hr 11/30/18 09:55: WBC 15.9 H, RBC 3.44 L, Hgb 9.6 L, Hct 32.3 L, MCV 94.1, MCH 28.0, MCHC 29.8 L, RDW 15.8, Plt Count 649 H, MPV 6.7 L, Neut % (Auto) 92.2 H, Lymph % (Auto) 4.0 L, Wetzel % (Auto) 3.7, Eos % (Auto) 0.0 L, Baso % (Auto) 0.0 L , Neut # (Auto) 14.7 H, Lymph # (Auto) 0.6 L, Wetzel # (Auto) 0.6, Eos # (Auto) 0.0, Baso # (Auto) 0.0 11/30/18 09:55: Sodium 136, Potassium 2.9 L*, Chloride 100, Carbon Dioxide 30, Anion Gap 8.9, BUN 8, Creatinine 0.54 L, Estimated Creat Clear 71, Estimated GFR 117, Est GFR ( Amer) 141, Glucose 151 H, Calcium 8.1 L I & O for Last 24 hours: Intake & Output 11/27/18 11/28/18 11/29/18 11/30/18 23:59 23:59 23:59 23:59 Intake Total 2500 / 2500 720 / 720 515 / 755 480 / 480 Output Total 2475 / 2475 900 / 900 850 / 850 450 / 450 Balance -180 / -180 -335 / -95 30 / 30 Weight 35.068 kg 35.04 kg 35.04 kg 38.555 kg Microbiology Reports for the Last 24 Hours: Microbiology 11/26/18 05:40 Sputum - Expectorated Sputum Gram Stain - Final 11/26/18 05:40 Sputum - Expectorated Sputum Sputum Culture - Final Streptococcus pneumoniae Assessment and Plan (1) Acute respiratory failure Current visit: Yes Status: Acute Category: Medical Code(s): J96.00 - Acute respiratory failure, unspecified whether with hypoxia or hypercapnia (2) Community acquired pneumonia Current visit: Yes Status: Acute Qualifiers: Laterality: right Lung location: unspecified part of lung Qualified Code(s): J18.9 - Pneumonia, unspecified organism Category: Medical Code(s): J18.9 - Pneumonia, unspecified organism (3) Cardiomyopathy Current visit: Yes Status: Acute Category: Medical Code(s): I42.9 - Cardiomyopathy, unspecified (4) LV dysfunction Current visit: Yes Status: Acute Category: Medical Code(s): I51.9 - Heart disease, unspecified (5) Sepsis Current visit: Yes Status: Acute Qualifiers: Sepsis type: sepsis due to unspecified organism Qualified Code(s): A41.9 - Sepsis, unspecified organism Category: Medical Code(s): A41.9 - Sepsis, unspecified organism (6) Lung cancer Current visit: Yes Status: Acute Qualifiers: Laterality: right Lung location: unspecified part of lung Qualified Code(s): C34.91 - Malignant neoplasm of unspecified part of right bronchus or lung Category: Medical Code(s): C34.90 - Malignant neoplasm of unspecified part of unspecified bronchus or lung (7) Severe mitral regurgitation Current visit: Yes Status: Acute Category: Medical Code(s): I34.0 - Nonrheumatic mitral (valve) insufficiency (8) Cardiomyopathy Current visit: Yes Status: Acute Category: Medical Code(s): I42.9 - Cardiomyopathy, unspecified (9) Low body mass index (BMI) Current visit: Yes Status: Acute Category: Medical (10) NSTEMI (non-ST elevated myocardial infarction) Current visit: Yes Status: Acute Category: Medical Code(s): I21.4 - Non-ST elevation (NSTEMI) myocardial infarction (11) Tobacco use Current visit: Yes Status: Acute Category: Medical Code(s): Z72.0 - Tobacco use (12) Anemia Current visit: No Status: Acute Qualifiers: Anemia type: unspecified type Qualified Code(s): D64.9 - Anemia, unspecified Category: Medical Code(s): D64.9 - Anemia, unspecified (13) Hypokalemia Current visit: No Status: Acute Category: Medical Code(s): E87.6 - Hypokalemia The patient's infection will respond to the chosen ABx?: Yes Is the patient receiving the right drug, dose, and route?: Yes Could a more targeted ABx be ordered?: No (STREP PNEUMO SUSCEPTIBLE TO ROCEPHIN)
[2018-11-30 11:08] LABS: Lymphocytes % 5 % (10-50); Monocytes % 5 % (2-9); Neutrophils % 90 % (42-76); Total Cells Counted 100
[2018-11-30 11:09] LABS: Hypochromasia 2+
[2018-12-01 05:51] LABS: Anion Gap 11.9 mEq/L (5-15); Calcium 8.7 mg/dL (8.5-10.1)
--- NOTE | 2018-12-01 12:06 | Progress Note ---
Internal Medicine - PN: Subj *Date: 12/01/18 *Time: 12:02 Interval history: The patient appeared comfortable this morning when I saw her at 9 AM. She had had a good night. She was resting comfortably with 2 L of nasal O2 in place. Her breath sounds were very diminished bilaterally as they have been. She had no leg edema. At about 10:30 AM she developed respiratory distress. Her heart rate went up in the 130s. She was placed back on Vapotherm but continued to struggle. A rapid response was called. Dr. Fuller was in attendance and gave her morphine and Ativan as well as 5 mg of Cardizem IV. Her heart rate came down. Her blood pressure which had gone up to over 100 diastolic came down as well. She was a bit more comfortable though still very dyspneic. She is DNR. Exam Vital signs and Labs for Last 24 Hours: Temp Pulse Resp BP Pulse Ox 97.8 F 131 H 24 126/82 92 L 12/01/18 08:00 12/01/18 08:00 12/01/18 08:00 12/01/18 08:00 12/01/18 10:25 Laboratory Results - last 24 hr 12/01/18 05:30: Sodium 140, Potassium 3.9 D, Chloride 101, Carbon Dioxide 31, Anion Gap 11.9, BUN 8, Creatinine 0.45 L, Estimated Creat Clear 85, Estimated GFR 144, Est GFR ( Amer) 174 D, Glucose 126 H, Calcium 8.7 BP now 135/92, FD=356, sinus tach I & O for Last 24 hours: Intake & Output 11/29/18 11/30/18 12/01/18 12/02/18 11:59 11:59 11:59 11:59 Intake Total 635 / 635 995 / 995 901 / 901 Output Total 800 / 800 1300 / 1300 Balance -165 / -165 -305 / -305 901 / 901 Weight 77 lb 4 oz 85 lb 84 lb 15.988 oz Microbiology Reports for the Last 24 Hours: Microbiology 11/26/18 05:38 Blood Blood Culture - Final NO GROWTH AFTER 5 DAYS 11/26/18 05:38 Blood Blood Culture - Final NO GROWTH AFTER 5 DAYS - Constitutional moderate distress (Dyspneic) - *Routine Respiratory Exam Present: decreased breath sounds (Markedly), rhonchi (Bilateral) Comments: Oxygen saturation is at 95%. - *Routine Cardiovascular Exam Present: tachycardia - *Routine Abdominal Exam Present: soft. Absent: tenderness - *Routine Extremities Exam Absent: edema Assessment and Plan (1) Acute respiratory failure Current visit: Yes Status: Acute Category: Medical Code(s): J96.00 - Acute respiratory failure, unspecified whether with hypoxia or hypercapnia (2) Community acquired pneumonia Current visit: Yes Status: Acute Qualifiers: Laterality: right Lung location: unspecified part of lung Qualified Code(s): J18.9 - Pneumonia, unspecified organism Category: Medical Code(s): J18.9 - Pneumonia, unspecified organism (3) Cardiomyopathy Current visit: Yes Status: Acute Category: Medical Code(s): I42.9 - Cardiomyopathy, unspecified (4) LV dysfunction Current visit: Yes Status: Acute Category: Medical Code(s): I51.9 - Heart disease, unspecified (5) Sepsis Current visit: Yes Status: Acute Qualifiers: Sepsis type: sepsis due to unspecified organism Qualified Code(s): A41.9 - Sepsis, unspecified organism Category: Medical Code(s): A41.9 - Sepsis, unspecified organism (6) Lung cancer Current visit: Yes Status: Acute Qualifiers: Laterality: right Lung location: unspecified part of lung Qualified Code(s): C34.91 - Malignant neoplasm of unspecified part of right bronchus or lung Category: Medical Code(s): C34.90 - Malignant neoplasm of unspecified part of unspecified bronchus or lung (7) Severe mitral regurgitation Current visit: Yes Status: Acute Category: Medical Code(s): I34.0 - Nonrheumatic mitral (valve) insufficiency (8) Cardiomyopathy Current visit: Yes Status: Acute Category: Medical Code(s): I42.9 - Cardiomyopathy, unspecified (9) Low body mass index (BMI) Current visit: Yes Status: Acute Category: Medical (10) NSTEMI (non-ST elevated myocardial infarction) Current visit: Yes Status: Acute Category: Medical Code(s): I21.4 - Non-ST elevation (NSTEMI) myocardial infarction (11) Tobacco use Current visit: Yes Status: Acute Category: Medical Code(s): Z72.0 - Tobacco use (12) Anemia Current visit: No Status: Acute Qualifiers: Anemia type: unspecified type Qualified Code(s): D64.9 - Anemia, unspecified Category: Medical Code(s): D64.9 - Anemia, unspecified (13) Hypokalemia Current visit: No Status: Acute Category: Medical Code(s): E87.6 - Hypokalemia - Assessment and plan all Dx Assessment and Plan for all problems:: She is on Vapotherm. Medications have seem to have helped. ABG is pending. She has not yet received nebulizer treatment during this acute episode. She may require BiPAP.
[2018-12-01 12:09] LABS: ABG Base Excess 2.6 mmol/L (-2.4-2.3); ABG HCO3 27.3 mmhg (22.0-26.0); ABG Oxygen Saturation 80 % (90-100); ABG PCO2 44.5 mmhg (35.0-45.0); ABG PH 7.41 mmol/L (7.35-7.45); ABG TCO2 28.7 mmhg (23-27)
[2018-12-02 08:40] LABS: Allen's Test ACCEPTABLE; Oxygen VAPOTHERM 40% %
[2018-12-02 08:41] LABS: ABG PO2 47.9 mmhg (80-100)
--- NOTE | 2018-12-02 09:12 | Progress Note ---
<Rosalie Ellis - Last Filed: 12/02/18 09:13> Internal Medicine - PN: Subj *Date: 12/02/18 *Time: 09:13 Interval history: Feels pretty good this morning. She did eat breakfast. She states she loves her oatmeal. She describes an incident yesterday where her bowels moved after several days and she became very short of breath. She had much difficulty in recovering and required Ativan after which she began to relax. She was restarted back on Vapotherm at that time. She has remained on Vapotherm throughout the night and denies shortness of breath. She also denies any chest discomfort. She has had a good urinary output. Dr. Carty has discussed hospice with her. Nursing will again try to wean from Vapotherm. Exam Vital signs and Labs for Last 24 Hours: Temp Pulse Resp BP Pulse Ox 98.0 F 116 H 25 H 133/91 H 94 L 12/02/18 07:57 12/02/18 06:41 12/02/18 06:00 12/02/18 06:00 12/02/18 06:41 Laboratory Results - last 24 hr 12/01/18 12:07: Specimen Source R. brachial, O2 % Vapotherm 40%, ABG pH 7.41, ABG pCO2 44.5, ABG pO2 47.9 L, ABG HCO3 27.3 H, ABG Total CO2 28.7 H, ABG O2 Sa turation 80 L*, ABG Base Excess 2.6 H, Onur Test Acceptable, Vent Rate N/a, Tidal Volume N/a, PEEP N/a I & O for Last 24 hours: Intake & Output 11/29/18 11/30/18 12/01/18 12/02/18 11:59 11:59 11:59 11:59 Intake Total 635 / 635 995 / 995 901 / 901 1200 / 1200 Output Total 800 / 800 1300 / 1300 1950 / 1950 Balance -165 / -165 -305 / -305 901 / 901 -750 / -750 Weight 77 lb 4 oz 85 lb 84 lb 15.988 oz Microbiology Reports for the Last 24 Hours: Microbiology 11/26/18 05:38 Blood Blood Culture - Final NO GROWTH AFTER 5 DAYS 11/26/18 05:38 Blood Blood Culture - Final NO GROWTH AFTER 5 DAYS Radiology Reports for the Last 24 Hours: Chest x-ray 12/01/2018 IMPRESSION: Prominent coarse and rather dense bilateral ill-defined pneumonic infiltrates with bilateral loculated pleural effusions, infiltrates are basely stable from most recent study however there has been interval increase in size of the bilateral loculated pleural effusions likely noncardiogenic in etiology - Constitutional no acute distress, thin Comments: Appears comfortable this morning. Slight dyspnea with talking. Color is much improved. - *Routine Respiratory Exam Present: diminished air movement (Throughout) - *Routine Cardiovascular Exam Present: RRR Comments: Monitor showing sinus tachycardia around 130 - *Routine Abdominal Exam Present: soft, normoactive bowel sounds. Absent: tenderness - *Routine Extremities Exam Absent: edema, calf tenderness - *Routine Neurological Exam Present: alert, oriented X3 Assessment and Plan (1) Acute respiratory failure Current visit: Yes Status: Acute Category: Medical Code(s): J96.00 - Acute respiratory failure, unspecified whether with hypoxia or hypercapnia (2) Community acquired pneumonia Current visit: Yes Status: Acute Qualifiers: Laterality: right Lung location: unspecified part of lung Qualified Code(s): J18.9 - Pneumonia, unspecified organism Category: Medical Code(s): J18.9 - Pneumonia, unspecified organism (3) Cardiomyopathy Current visit: Yes Status: Acute Category: Medical Code(s): I42.9 - Cardiomyopathy, unspecified (4) LV dysfunction Current visit: Yes Status: Acute Category: Medical Code(s): I51.9 - Heart disease, unspecified (5) Sepsis Current visit: Yes Status: Acute Qualifiers: Sepsis type: sepsis due to unspecified organism Qualified Code(s): A41.9 - Sepsis, unspecified organism Category: Medical Code(s): A41.9 - Sepsis, unspecified organism (6) Lung cancer Current visit: Yes Status: Acute Qualifiers: Laterality: right Lung location: unspecified part of lung Qualified Code(s): C34.91 - Malignant neoplasm of unspecified part of right bronchus or lung Category: Medical Code(s): C34.90 - Malignant neoplasm of unspecified part of unspecified bronchus or lung (7) Severe mitral regurgitation Current visit: Yes Status: Acute Category: Medical Code(s): I34.0 - Nonrheumatic mitral (valve) insufficiency (8) Cardiomyopathy Current visit: Yes Status: Acute Category: Medical Code(s): I42.9 - Cardiomyopathy, unspecified (9) Low body mass index (BMI) Current visit: Yes Status: Acute Category: Medical (10) NSTEMI (non-ST elevated myocardial infarction) Current visit: Yes Status: Acute Category: Medical Code(s): I21.4 - Non-ST elevation (NSTEMI) myocardial infarction (11) Tobacco use Current visit: Yes Status: Acute Category: Medical Code(s): Z72.0 - Tobacco use (12) Anemia Current visit: No Status: Acute Qualifiers: Anemia type: unspecified type Qualified Code(s): D64.9 - Anemia, unspecified Category: Medical Code(s): D64.9 - Anemia, unspecified (13) Hypokalemia Current visit: No Status: Acute Category: Medical Code(s): E87.6 - Hypokalemia - Assessment and plan all Dx Assessment and Plan for all problems:: Patient will consider hospice. Continue to try to wean from Vapotherm. Sputum culture reveals strep pneumoniae sensitive to antibiotics which patient is on. <Bonny Carty - Last Filed: 12/02/18 09:33> Internal Medicine - PN: Subj *Date: 12/02/18 *Time: 09:26 Exam Vital signs and Labs for Last 24 Hours: Temp Pulse Resp BP Pulse Ox 98.0 F 129 H 24 141/89 H 95 12/02/18 07:57 12/02/18 08:00 12/02/18 08:00 12/02/18 08:00 12/02/18 08:00 Laboratory Results - last 24 hr 12/01/18 12:07: Specimen Source R. brachial, O2 % Vapotherm 40%, ABG pH 7.41, ABG pCO2 44.5, ABG pO2 47.9 L, ABG HCO3 27.3 H, ABG Total CO2 28.7 H, ABG O2 Saturation 80 L*, ABG Base Excess 2.6 H, Onur Test Acceptable, Vent Rate N/a, Tidal Volume N/a, PEEP N/a I & O for Last 24 hours: Intake & Output 11/29/18 11/30/18 12/01/18 12/02/18 11:59 11:59 11:59 11:59 Intake Total 635 / 635 995 / 995 901 / 901 1200 / 1200 Output Total 800 / 800 1300 / 1300 1950 / 1950 Balance -165 / -165 -305 / -305 901 / 901 -750 / -750 Weight 77 lb 4 oz 85 lb 84 lb 15.988 oz Microbiology Reports for the Last 24 Hours: Microbiology 11/26/18 05:38 Blood Blood Culture - Final NO GROWTH AFTER 5 DAYS 11/26/18 05:38 Blood Blood Culture - Final NO GROWTH AFTER 5 DAYS Assessment and Plan (1) Acute respiratory failure Current visit: Yes Status: Acute Category: Medical Code(s): J96.00 - Acute respiratory failure, unspecified whether with hypoxia or hypercapnia (2) Community acquired pneumonia Current visit: Yes Status: Acute Qualifiers: Laterality: right Lung location: unspecified part of lung Qualified Code(s): J18.9 - Pneumonia, unspecified organism Category: Medical Code(s): J18.9 - Pneumonia, unspecified organism (3) Cardiomyopathy Current visit: Yes Status: Acute Category: Medical Code(s): I42.9 - Cardiomyopathy, unspecified (4) LV dysfunction Current visit: Yes Status: Acute Category: Medical Code(s): I51.9 - Heart disease, unspecified (5) Sepsis Current visit: Yes Status: Acute Qualifiers: Sepsis type: sepsis due to unspecified organism Qualified Code(s): A41.9 - Sepsis, unspecified organism Category: Medical Code(s): A41.9 - Sepsis, unspecified organism (6) Lung cancer Current visit: Yes Status: Acute Qualifiers: Laterality: right Lung location: unspecified part of lung Qualified Code(s): C34.91 - Malignant neoplasm of unspecified part of right bronchus or lung Category: Medical Code(s): C34.90 - Malignant neoplasm of unspecified part of unspecified bronchus or lung (7) Severe mitral regurgitation Current visit: Yes Status: Acute Category: Medical Code(s): I34.0 - Nonrheumatic mitral (valve) insufficiency (8) Cardiomyopathy Current visit: Yes Status: Acute Category: Medical Code(s): I42.9 - Cardiomyopathy, unspecified (9) Low body mass index (BMI) Current visit: Yes Status: Acute Category: Medical (10) NSTEMI (non-ST elevated myocardial infarction) Current visit: Yes Status: Acute Category: Medical Code(s): I21.4 - Non-ST elevation (NSTEMI) myocardial infarction (11) Tobacco use Current visit: Yes Status: Acute Category: Medical Code(s): Z72.0 - Tobacco use (12) Anemia Current visit: No Status: Acute Qualifiers: Anemia type: unspecified type Qualified Code(s): D64.9 - Anemia, unspecified Category: Medical Code(s): D64.9 - Anemia, unspecified (13) Hypokalemia Current visit: No Status: Acute Category: Medical Code(s): E87.6 - Hypokalemia - Assessment and plan all Dx Assessment and Plan for all problems:: Patient has very poor prognosis secondary to advanced lung cancer compromising her breathing leading to acute on chronic hypoxic respiratory failure. She is requiring 40% of oxygen/35LPM on vapotherm. She failed multiple attempts in the past to wean off vapotherm. She might be a good candidate for trilogy or high flow oxygen. She also has HFrEF at 20-25% with poor prognosis. She is severely cachetic secondary to her cancer. She is a good candidate for hospice although she is very reluctant about this. I had an extensive conversation about hospice and she is agreeable to talk to hospice nurse in order to make a decision. She is eager to go home. However, if she qualifies for hospice, she can go home with appropriate devices for her oxygenation and medicines. She already has commode, shower bench, and neb machine at home. I told her I am more than happy to follow her on hospice. She finished her course of abx with rocephin and azithromycin for her strep pneumonia. No further treatment necessary for this. Will await hospice decision.
--- NOTE | 2018-12-03 21:41 | Discharge Summary ---
General - General Admission date:: 11/26/18 Discharge date: 12/02/18 HPI HPI: Ms. Willson is a 58-year-old patient of Marcela Patterson APRN who presented to the [facility] emergency room with shortness of breath. She states she awakened around 3 AM this morning and was unable to breathe. This progressively worsened. She denies having chest pain at this time. She was staying with her son last night and did not bring her oxygen or her neb machine. With evaluation in the emergency room patient was found to have an elevated white blood cell count of 37,000, elevated troponin, elevated lactic acid, EKG changes, PO2 in the 50s and chest x-ray which revealed possible pneumonia. She was thus admitted for further evaluation and treatment with cardiology consult. She did receive a liter of IV fluids in the emergency room as well as a Xopenex neb treatment and steroids At the time of this exam patient states she is somewhat better. She continues to deny chest pain. Patient has a history of lung cancer and stopped treatments about a year ago. She states the treatments were killing her. She has been unable to walk and uses a wheelchair for ambulation. Hospital Course Hospital Course: The patient's chest x-ray showed a left lung mass and some increased opacity likely consolidation versus atelectasis in the right lung with an increasing right-sided pleural effusion. Her troponin was found to be elevated. Cardiology was consulted and she was continued on IV fluids, steroids, nebs, and antibiotics. Cardiology saw the patient and ordered an echo. The EF on her echocardiogram was less than 20%. They felt the patient was septic and her elevated troponin was most likely secondary to right heart strain due to hypoxia. They did not want to plan for a left heart cath. They felt she would need a cardiac work-up once her sepsis was resolved. Cardiology did feel she should be transferred to a tertiary care center. Dr. Carty discussed this with the patient but she refused to go to and did not want to pursue a cardiac cath or lung cancer treatment. She did want her sepsis to be treated, therefore she was continued on IV antibiotics and IV fluids. After explaining the details of the resuscitation process, the patient changed her mind to be a DNR/DNI. The patient became more dyspneic after going to the bathroom. She refused a mask because she stated it made her "smother." She was given a stat dose of 40 mg of IV Lasix, 2 mg of morphine, and 12.5 mg of metoprolol for her tachycardia. Her IV fluids were decreased. She was also started on Vapotherm. She had a repeat chest x-ray showing a small left lateral pleural effusion. The patient began feeling better after the Lasix and the Vapotherm. She denied any pain or shortness of breath. She was able to eat but was not resting well. Hospice was discussed with the patient but she was unwilling. The patient was weaned from her Vapotherm to nasal cannula. Her blood culture returned with no growth and her sputum returned with growth of Streptococcus pneumoniae which was sensitive to Rocephin. She had another repeat chest x-ray showing prominent coarse and rather dense bilateral ill-defined pneumonic infiltrates with bilateral loculated pleural effusions. The patient's symptoms did begin improving. She was able to sit up and eat. She appeared very stable on the morning of 12/01/2018. At around 10:30 AM on 12/01/18, she developed respiratory distress and her heart rate increased into the 130s. She was placed back on Vapotherm but continued to struggle. A rapid response was called and Dr. Cedillo was in attendance and gave her morphine and Ativan as well as 5 mg of Cardizem IV. Her heart rate came down as did her blood pressure. She was more comfortable but very dyspneic. She had to remain on Vapotherm throughout the night and was finally in agreement to consider hospice. She did finish her course of antibiotics with Rocephin and Zithromax for the strep pneumonia, therefore no further antibiotics were necessary. A hospice nurse did evaluate the patient and accepted her. She was stable to be discharged home with hospice services and DME will be set up by the hospice team at her home. Objective Vital signs: Temp Pulse Resp BP Pulse Ox 98.0 F 110 H 20 131/76 94 L 12/02/18 07:57 12/02/18 16:00 12/02/18 14:00 12/02/18 14:00 12/02/18 14:00 Narrative: - Constitutional moderate distress, thin, chronically ill appearing, cooperative - *Routine HEENT Exam Head: Present: normocephalic, atraumatic Eye: Present: PERRL. Absent: conjunctival icterus, scleral injection ENT: Present: mucous membranes dry - *Routine Neck Exam Absent: carotid bruit, lymphadenopathy, thyromegaly - *Routine Respiratory Exam Present: diminished air movement (Bilaterally anteriorly and posteriorly) Comments: More dyspneic with talking - *Routine Cardiovascular Exam Present: RRR, tachycardia (Heart rate 129 on monitor) - *Routine Abdominal Exam Present: soft, normoactive bowel sounds. Absent: tenderness, distended - *Routine Extremities Exam Absent: edema, calf tenderness - *Routine Skin Exam Present: dry, warm - *Routine Neurological Exam Present: alert, oriented X3 DS: Diagnosis - Discharge Diagnosis (1) Acute respiratory failure Status: Acute (2) Community acquired pneumonia Status: Acute (3) Cardiomyopathy Status: Acute (4) LV dysfunction Status: Acute (5) Sepsis Status: Acute (6) Lung cancer Status: Acute (7) Severe mitral regurgitation Status: Acute (8) Cardiomyopathy Status: Acute (9) Low body mass index (BMI) Status: Acute (10) NSTEMI (non-ST elevated myocardial infarction) Status: Acute (11) Tobacco use Status: Acute (12) Anemia Status: Acute (13) Hypokalemia Status: Acute Discharge Plan - Patient Discharge Instructions ACTIVITY: Limited activity, No heavy lifting, Bed rest, Up with assistance DIET: continue same diet Patient Instructions: DI for Heart Attack, Pneumonia-Adult, Cardiomyopathy, DI for Pneumonia -- Adult, DI for Shortness of Breath, DI for Sepsis -- Adult, DI for Respiratory Failure - Follow up Plan Follow up with: Bonny Carty MD [Staff Physician] - 12/09/18 9:35 am Disposition: Hospice - Home Home Medications: Home Medications Medication Instructions Recorded Confirmed Type Diclofenac Sodium [Diclofenac 75mg 75 mg PO BID 11/26/18 12/03/18 History Tab] LORazepam [Ativan 1mg tablet] 1 mg PO BID PRN 30 Days #60 tab 12/02/18 12/03/18 Rx Levalbuterol HCl [Xopenex 1.25 mg IH Q6H PRN 30 Days #180 12/02/18 12/03/18 Rx Concentrate] vial.neb Morphine Sulfate [Roxanol 20mg/mL 10 mg PO BID PRN 30 Days #30 ml 12/02/18 12/03/18 Rx 1mL oral soln UDC] Nicotine [Nicoderm 21mg/24hr 21 mg TD DAILYP PRN 30 Days #30 12/02/18 12/03/18 Rx patch] patch.[email or web address] Prescriptions/Medication Reconciliation: New LORazepam [Ativan 1mg tablet] 1 mg PO BID PRN 30 Days #60 tab PRN Reason: Anxiety Morphine Sulfate [Roxanol 20mg/mL 1mL oral soln UDC] 10 mg PO BID PRN 30 Days #30 ml PRN Reason: Severe Pain Nicotine [Nicoderm 21mg/24hr patch] 21 mg TD DAILYP PRN 30 Days #30 patch.td24 PRN Reason: Nicotine Cravings Levalbuterol HCl [Xopenex Concentrate] 1.25 mg IH Q6H PRN 30 Days #180 vial.neb PRN Reason: Shortness Of Breath Or Wheezing Continued Diclofenac Sodium [Diclofenac 75mg Tab] 75 mg PO BID Discontinued predniSONE [Prednisone 5mg Tab] 5 mg PO DIRECTED Albuterol Sulfate [Albuterol HFA Inhaler] 1 - 2 puffs IH Q4HP PRN PRN Reason: Shortness Of Breath/Wheezing
== END 2018-12-02 16:43 | disposition hospice, home (50) | DRG 280 ==
LOC: 2ND 05:12 → ER 05:12 → OBSVTOIN 07:04 → 2ND 07:37
PROVIDERS: ADMIT Emergency Medicine; ATTEND Emergency Medicine
CPT/HCPCS: 36415; 71010; 71045; 80048; 80053; 81001; 82803; 82962; 83605; 83735; 84484; 85007; 85025; 85060; 87040; 87070; 87077; 87186; 87205; 93005; 93306; 94640; 94761; 96365; 96367; 96375; 99285; J0456; J2405